=== PATIENT | male | born 1970 | race Caucasian/White ===

== ENCOUNTER 2023-04-07 07:57 | Outpatient (OUT) | payer BC, SELFPAY ==
[2023-04-07 08:57] LABS: Basophils Absolute Auto 0.1 10^3/uL (0.0-0.1); Basophils Percent Auto 1.1 % (0.2-2.0); Eosinophils Absolute Auto 0.2 10^3/uL (0.0-0.7); Hematocrit 41.6 % (36.0-54.0); Hemoglobin 14.4 g/dL (12.0-18.0); Immature Granulocytes Abs Auto 0.02 10^3/uL (0.00-0.03); Immature Granulocytes Pct Auto 0.3 % (0.0-0.5); Lymphocytes Absolute Auto 2.1 10^3/uL (1.2-3.8); Lymphocytes Percent Auto 33.1 % (20.5-60.0); Mean Corpuscular HGB Conc 34.6 g/dL (29.9-35.2); Mean Corpuscular Hemoglobin 29.6 pg (25.9-34.0); Mean Corpuscular Volume 85.4 fL (80.0-99.0); Mean Platelet Volume 9.9 fL (9.5-13.5); Monocytes Absolute Auto 0.6 10^3/uL (0.3-0.8); Monocytes Percent Auto 9.1 % (1.7-12.0); Neutrophils Absolute Auto 3.3 10^3/uL (1.4-6.5); Neutrophils Percent Auto 53.4 % (43.0-75.0); Platelet Count 246 10^3/uL (150-450); Red Blood Count 4.87 10^6/uL (4.20-6.10); White Blood Count 6.3 10^3/uL (4.0-11.0)
[2023-04-07 09:15] LABS: Alanine Aminotransferase 45 U/L (14-63); Albumin Globulin Ratio 1.4; Albumin Level 4.1 g/dL (3.4-5.0); Alkaline Phosphatase 57 U/L (46-116); Anion Gap 11.1; Aspartate Amino Transferase 19 U/L (15-37); BUN Creatinine Ratio 13.6; Bilirubin Total 0.4 mg/dL (0.2-1.0); Calcium 9.1 mg/dL (8.5-10.1); Carbon Dioxide 28.1 mmol/L (21.0-32.0); Chloride 106 mmol/L (98-107); Chol HDL Ratio 4.4; Cholesterol 145 mg/dL (<=200); Estimated GFR (African America >60 (>=60); Estimated GFR (Non-African Ame >60 (>=60); Globulin 2.9 g/dL; Glucose 135 mg/dL (74-106); HDL Cholesterol 33 mg/dL (40-60); Potassium 4.2 mmol/L (3.5-5.1); Sodium 141 mmol/L (136-145); Triglycerides 146 mg/dL (<=150); VLDL CHOLESTEROL 29.2 mg/dL
[2023-04-07 09:42] LABS: Prostate Specific Antigen Scrn 1.06 ng/mL (<=4.00)
[2023-04-07 09:46] LABS: Estimated Average Glucose 126 mg/dL
== END 2023-04-07 07:58 ==
PROVIDERS: PCP Family Medicine; Visit Provider Family Medicine
DX: Z00.00 Encounter for general adult medical examination without abnormal findings (principal); Z12.5 Encounter for screening for malignant neoplasm of prostate
CPT/HCPCS: 36415; 80053; 80061; 83036; 85025; G0103

== ENCOUNTER 2024-01-17 14:46 | Outpatient (OUT) | payer BC, SELFPAY ==
[2024-01-17 15:46] LABS: Thyroid Stimulating Hormone 1.117 uIU/mL (0.358-3.740)
[2024-01-17 16:18] LABS: Free T4 1.04 ng/dL (0.76-1.46)
[2024-01-18 04:08] LABS: Testosterone 172 ng/dL (264-916)
== END 2024-01-17 14:47 | disposition home or self-care (01) ==
LOC: LAB 14:47
PROVIDERS: PCP Family Medicine; Visit Provider Family Medicine
DX: R53.83 Other fatigue (principal)
CPT/HCPCS: 36415; 84403; 84439; 84443

== ENCOUNTER 2024-02-27 20:41 | Outpatient (OUT) | payer BC, SELFPAY | END 2024-02-27 20:42 | disposition home or self-care (01) | LOC: SLEEP 20:42 | PROVIDERS: PCP Family Medicine; Visit Provider Family Medicine | DX: G47.33 Obstructive sleep apnea (adult) (pediatric) (principal) | CPT/HCPCS: 95810 ==

== ENCOUNTER 2024-04-16 19:49 | Outpatient (OUT) | payer BC, SELFPAY ==
--- OUTSIDE RECORDS SUMMARY | 2024-04-16 19:52 | XMS_ITS | CCD ---
Author Organization [facility] Inform ion Partnership [facility] Care Team Providers Care Spinneret Cleaner Name Role Phone YOSELYN HENDRIX Referring Unavaila YOSELYN Mcintyre Primary Care Unavaila Yoselyn Mcintyre DO Primary Care Provider Yoselyn Hendrix DO Primary Care Provider KT GARCIA Admitting Unavailable KT GARCIA Attending Unavailable YOSELYN EHNDRIX Primary Care Unavaila Yoselyn Mcintyre DO Primary Care Provider Yoselyn Hendrix DO Unavailable [phone] Medications Current Medications Medication Drug Class(es) Dates Sig (Normalized) Sig (Original) fenofibrate 160 mg oral tablet (3 sources) Peroxisome Proliferator Receptor alpha Agonist Start: 12-07-2021 take 1 tablet by mouth once daily fenofibrate (TRIGLIDE) 160 MG tablet Take 1 tablet by mouth daily 30 tablet 5 12/07/2021 Active Start: 09-30-2019 take 1 tablet by tonny th once daily fenofibrate 160 MG tablet Take 1 tablet by mouth daily 30 tablet 1 09/30/2019 Active FENOFIBRATE MICR ONIZED PO Take by mouth 0 Active lisinopril 10 mg oral tablet (3 sources) Angiotensin Converting Enzyme Inhibitor Start: 12-07-2021 lisinopril (PRINIVIL;ZESTRIL) 10 MG tablet Indications: Essential hypertension Take 1 daily 30 tablet 5 12/07/2021 Active Start: 11-08-2019 take 1 tablet by tonny th once daily lisinopril (PRINIVIL;ZESTRIL) 10 MG tablet Indications: Essential hypertension TAKE ONE TABLET BY MOUTH EVERY DAY 30 tablet 5 11/08/2019 Active Problems Active Problems Problem Classification Problem Date Documented Da te Episodic/Chronic Disorders of lipid metabolism (3 sources) Pure hyperglyceridemia; Translations: [Pure hyperglyceridemia] Onset: 10-09-2017 Chronic Essential hypertension (1 source) Essential hypertension Chronic Immunizations and screening for infectious disease (1 source) Suspected disease caused by 2019-nCoV; Translations: [Suspected COVID-19 virus infection] Episodic Past or Other Problems Problem Classification Problem Date Documented Da te Episodic/Chronic Genitourinary symptoms and ill-defined conditions (1 source) Slowing of urinary stream Episodic Results Test Name Value Interpretation Reference Range Facility SARS-CoV-2 (COVID-19) RT-PCR on 04-30-2022 SARS-CoV-2 (COVID-19) RNA SHERWIN+probe Ql (Unsp spec) Negative Normal [facility] Comment on above: Order Comment: Is th is a pre-procedure screening test?->No Release to patient->Automatic 92977&Nasal swab Result Comment: NEGA TIVE: SARS-CoV-2 RNA was NOT detected - Interpretation: A negative result indicates severe acute respiratory syndrome coronavirus 2 (SARS-CoV-2) RNA was not detected. Negative results do not preclude SARS-CoV-2 infection and should not be used as the sole basis for patient management decisions. Negative results must be combined with clinical observations, patient history, and epidemiological information. The possibility of a false negative result should be considered if the patient's recent exposures or clinical presentation suggest that SARS-CoV-2 infection is possible, and diagnostic tests for other causes of illness are negative. If SARS-CoV-2 infection is still suspected, re-testing should be considered. - Method: Real-time reverse transcriptase PCR amplification for the qualitative detection of the ORF1 a/b non-structural region that is unique to SARS-CoV-2 and a conserved region in the structural protein envelope E-gene for morton-Sarbecovirus detection using the Ciera SARS-CoV-2 assay on the Donell Ciera 6800 System. - Comment: This test has received FDA Emergency Use Authorization (EUA) and has been verified by [facility] [place] [facility] [place]. This test is only authorized for the duration of the public health emergency declaration and the circumstances that exist to justify the authorization of the emergency use of in vitro diagnostic tests for the detection of SARS-CoV-2 virus and/or diagnosis of COVID-19 infection under section 564(b)(1) of the Act, 21 U.S.C. 360bbb-3(b)(1), unless the authorization is terminated or revoked sooner. This test has not been FDA cleared or approved. Results should be used in conjunction with clinical findings, and should not form the sole basis for a diagnosis or treatment decision. - Fact Sheets for this EUA can be found at the following links: For Healthcare Providers: www.fda.gov/media/991782/download For Patients: www.fda.gov/media/085809/download - Reference Value: Negative Performed By: #### C OVID #### [place] [address] CIERA SARS CoV-2 RT PCR Not detected Normal [facility] Comment on above: Order Comment: Is th is a pre-procedure screening test?->No Release to patient->Automatic 84065&Nasal swab Performed By: #### C OVID #### [place] [address] SARS-CoV-2 (COVID-19) RT-PCR on 04-28-2022 Date of Symptom Onset [id number] Normal [facility] Comment on above: Order Comment: Is th is a pre-procedure screening test?->No Release to patient->Automatic 50858&Nasal swab Performed By: #### C OVID #### [place] [address] ICU? No Normal [facility] Comment on above: Order Comment: Is th is a pre-procedure screening test?->No Release to patient->Automatic 73467&Nasal swab Performed By: #### C OVID #### [place] [address] Resident in congregate care setting? No Normal [facility] Comment on above: Order Comment: Is th is a pre-procedure screening test?->No Release to patient->Automatic 11687&Nasal swab Performed By: #### C OVID #### [facility] [address] [place] [address] SARS-CoV-2 (COVID-19) RNA SHERWIN+probe Ql (Unsp spec) Yes Normal [facility] Comment on above: Order Comment: Is th is a pre-procedure screening test?->No Release to patient->Automatic 13856&Nasal swab Performed By: #### C OVID #### [address] [address] Symptomatic as defined by CDC? Yes Normal [facility] Comment on above: Order Comment: Is th is a pre-procedure screening test?->No Release to patient->Automatic 12307&Nasal swab Performed By: #### C OVID #### [address] [address] Surgical Specimenon 03-29-20 Surgical Specimen [facility] [address] [address] FINAL SURGICAL PATHOLOGY REPORT NAME: PANKAJ COLEMAN Date of 03/29/2022 Collection: Medical Record [id number] Date of 03/29/2022 Number: Receipt: Age: 52 Y Sex: M Date 04/01/2022 08:52 Reported: Date Of : 1970 [facility] [id number] Admitting KT GARCIA Number: Physician: Patient SAGE ENDOPLNON Ordering KT GARCIA Location: Physician: Accession Number: [id number] Additional Physicians:MARÍA HENDRIX Diagnosis: A. Transverse colon, polyps (2), polypectomy: Tubular adenomas (2). B. Sigmoid colon, polyps (4), polypectomy: Tubular adenoma (1) and incipient hyperplastic polyps (3). EZEQUIEL SAEED M.D. (Electronic Signature) Specimen Submitted: A. COLON POLYP, TRANSVERSE X 2 B. COLON POLYP, SIGMOID X 4 Clinical Notes: Procedure: Colonoscopy with biopsy Preoperative Dx: Screening Postoperative Dx:: Screening Microscopic Evaluation: Was performed. Gross Description: The specimen is received in buffered formalin in two parts labeled Pankaj Coleman. A. transverse colon polyp biopsy consists of 2 soft avery tissue fragments, 0.2 to 0.3 cm in greatest dimension. Entirely submitted in A1. B. sigmoid colon polyp biopsy consists of 4 soft avery tissue fragments, 0.3 to 0.4 cm in greatest dimension. Entirely submitted in B1. (TIFFANIE:YARELY) CODES: [id number]; Department of Pathology Page 1 of 1 Normal [facility] CBC With Platelet No Differe ntialon 12-07-2021 Hematocrit (Bld) [Volume fraction] 44.8 % Normal 37.0-54.0 [facility] Hemoglobin (Bld) [Mass/Vol] 15.2 g/dL Normal 12.5-16.5 [facility] MCH (RBC) [Entitic mass] 29.3 pg Normal 26.0-35.0 [facility] MCHC 33.9 % Normal 32.0-34.5 [facility] MCV (RBC) [Entitic vol] 86.5 fL Normal 80.0-99.9 [facility] Platelet Count 273 E9/L Normal 130-450 [facility] Platelet mean volume (Bld) [Entitic vol] 10.0 fL Normal 7.0-12.0 [facility] RBC 5.18 E12/L Normal 3.80-5.80 [facility] RDW 12.5 fL Normal 11.5-15.0 [facility] WBC 6.4 E9/L Normal 4.5-11.5 [facility] Comprehensive Metabolic Pane razia 12-07-2021 Albumin [Mass/Vol] 4.7 g/dL Normal 3.5-5.2 [facility] ALP [Catalytic activity/Vol] 51 U/L Normal 40-129 [facility] ALT [Catalytic activity/Vol] 30 U/L Normal 0-40 [facility] Anion gap [Moles/Vol] 10 mmol/L Normal 7-[address] [facility] AST [Catalytic activity/Vol] 21 U/L Normal 0-39 [facility] Bilirubin [Mass/Vol] 0.5 mg/dL Normal 0.0-1.2 [facility] Calcium [Mass/Vol] 9.8 mg/dL Normal 8.6-10.2 [facility] Chloride [Moles/Vol] 105 mmol/L Normal 98-107 [facility] CO2 [Moles/Vol] 27 mmol/L Normal 22-29 [facility] Creatinine [Mass/Vol] 1.3 mg/dL High 0.7-1.2 [facility] GFR/1.73 sq M.predicted among blacks MDRD (S/P/Bld) [Vol rate/Area] mL/min/{1.73_m2} Normal [facility] GFR/1.73 sq M.predicted among non-blacks MDRD (S/P/Bld) [Vol rate/Area] 58 mL/min/{1.73_m2} Normal >=60 [facility] Comment on above: Result Comment: Analytics Director renard Kidney Disease: less than 60 ml/min/1.73 sq.m. Kidney Failure: less than 15 ml/min/1.73 sq.m. Results valid for patients 18 years and older. Glucose [Mass/Vol] 114 mg/dL High 74-99 [facility] Potassium [Moles/Vol] 4.7 mmol/L Normal 3.5-5.0 [facility] Protein [Mass/Vol] 6.9 g/dL Normal 6.4-8.3 [facility] Sodium [Moles/Vol] 142 mmol/L Normal 132-146 [facility] Urea nitrogen [Mass/Vol] 17 mg/dL Normal 6-20 [facility] Lipid Panelon 12-07-2021 Cholesterol [Mass/Vol] 179 mg/dL Normal 0-199 [facility] Cholesterol in HDL [Mass/Vol] 33 mg/dL Normal >40 [facility] Cholesterol in LDL [Mass/Vol] 115 mg/dL High 0-99 [facility] Triglyceride [Mass/Vol] 156 mg/dL High 0-149 [facility] VLDL Cholesterol (Calculated) 31 mg/dL Normal [facility] PSA Screenon 12-07-2021 PSA Screen 0.75 ng/mL Normal 0.00-4.00 [facility] SARS-CoV-2 (COVID-19) RT-PCR on 09-30-2021 SARS-CoV-2 (COVID-19) RNA SHERWIN+probe Ql (Unsp spec) Negative Normal [facility] Comment on above: Order Comment: PATY PUCKETT SICK COVID 12:00 Result Comment: NEGA TIVE: SARS-CoV-2 RNA was NOT detected - Interpretation: A negative result indicates severe acute respiratory syndrome coronavirus 2 (SARS-CoV-2) RNA was not detected. Negative results do not preclude SARS-CoV-2 infection and should not be used as the sole basis for patient management decisions. Negative results must be combined with clinical observations, patient history, and epidemiological information. The possibility of a false negative result should be considered if the patient's recent exposures or clinical presentation suggest that SARS-CoV-2 infection is possible, and diagnostic tests for other causes of illness are negative. If SARS-CoV-2 infection is still suspected, re-testing should be considered. - Method: Real-time reverse transcriptase PCR amplification for the qualitative detection of the ORF1 a/b non-structural region that is unique to SARS-CoV-2 and a conserved region in the structural protein envelope E-gene for morton-Sarbecovirus detection using the Ciera SARS-CoV-2 assay on the Donell Ciera 6800 System. - Comment: This test has received FDA Emergency Use Authorization (EUA) and has been verified by [facility]. This test is only authorized for the duration of the public health emergency declaration and the circumstances that exist to justify the authorization of the emergency use of in vitro diagnostic tests for the detection of SARS-CoV-2 virus and/or diagnosis of COVID-19 infection under section 564(b)(1) of the Act, 21 U.S.C. 360bbb-3(b)(1), unless the authorization is terminated or revoked sooner. This test has not been FDA cleared or approved. Results should be used in conjunction with clinical findings, and should not form the sole basis for a diagnosis or treatment decision. - Fact Sheets for this EUA can be found at the following links: For Healthcare Providers: www.fda.gov/media/465644/download For Patients: www.fda.gov/media/932987/download - Reference Value: Negative Performed By: #### C OVID #### [facility] [address] [place] [address] CIERA SARS CoV-2 RT PCR Not detected Normal [facility] Comment on above: Order Comment: PATY PUCKETT SICK COVID 12:00 Performed By: #### C OVID #### [facility] [address] [place] [address] SARS-CoV-2 (COVID-19) RT-PCR on 07-01-2021 SARS-CoV-2 (COVID-19) RNA SHERWIN+probe Ql (Unsp spec) Negative Normal [facility] Comment on above: Result Comment: NEGA TIVE: SARS-CoV-2 RNA was NOT detected - Interpretation: A negative result indicates severe acute respiratory syndrome coronavirus 2 (SARS-CoV-2) RNA was not detected. Negative results do not preclude SARS-CoV-2 infection and should not be used as the sole basis for patient management decisions. Negative results must be combined with clinical observations, patient history, and epidemiological information. The possibility of a false negative result should be considered if the patient's recent exposures or clinical presentation suggest that SARS-CoV-2 infection is possible, and diagnostic tests for other causes of illness are negative. If SARS-CoV-2 infection is still suspected, re-testing should be considered. - Method: Real-time reverse transcriptase PCR amplification for the qualitative detection of the ORF1 a/b non-structural region that is unique to SARS-CoV-2 and a conserved region in the structural protein envelope E-gene for morton-Sarbecovirus detection using the Ciera SARS-CoV-2 assay on the Donell Ciera [employer] System. - Comment: This test has received FDA Emergency Use Authorization (EUA) and has been verified by [facility]. This test is only authorized for the duration of the public health emergency declaration and the circumstances that exist to justify the authorization of the emergency use of in vitro diagnostic tests for the detection of SARS-CoV-2 virus and/or diagnosis of COVID-19 infection under section 564(b)(1) of the Act, 21 U.S.C. 360bbb-3(b)(1), unless the authorization is terminated or revoked sooner. This test has not been FDA cleared or approved. Results should be used in conjunction with clinical findings, and should not form the sole basis for a diagnosis or treatment decision. - Fact Sheets for this EUA can be found at the following links: For Healthcare Providers: www.fda.gov/media/964441/download For Patients: www.fda.gov/media/873354/download - Reference Value: Negative Performed By: #### C OVID #### [place] [address] Dermatopathologyon 0 Dermatopathology [facility] [address] [place] [id number] DER[facility]OPATHOLOGY RE[id number] Location: [facility] Date of Procedure: 05/06/2020 Race: UNKNOWN* Date Received: 05/07/2020 /Sex: 1970 (Age: 50) / M Date Reported: 05/08/2020 Other: Submitting Physician:NOMNA WEEKS PA-C FINAL DIAGNOSIS SKIN, LEFT NECK, BIOPSY: SEBORRHEIC KERATOSIS. Electronically Signed Out by NANO BANKS M.D. Electronically Signed Out By NANO BANKS MD/[facility] By the signature on this report, the individual or group listed as making the Final Interpretation/Katie gnosis certifies that they have reviewed this case. Clinical History: Seborrheic keratosis rule out atypia. Biopsy. Specimens Submitted As: A: SKIN, LEFT NECK Gross Description: Received in formalin is a avery piece of skin measuring 2q3x5ls. The specimen is inked and embedded in toto. prp/05/07/2020 Microscopic Description: Microscopic analysis shows a papillomatous proliferation of bland keratinocytes with hyperkeratosis, acanthosis and pseudohorn cysts. Inflammatory cells are present in the dermis and infiltrate the keratosis. Normal [facility] Comment on above: Performed By: #### D #### Dermatopathology Comprehensive Metabolic Pane razia 11-08-2019 Albumin [Mass/Vol] 4.7 g/dL Normal 3.5-5.2 [facility] ALP [Catalytic activity/Vol] 63 U/L Normal 40-129 [facility] ALT [Catalytic activity/Vol] 45 U/L High 0-40 [facility] Anion gap [Moles/Vol] 21 mmol/L High 7-16 [facility] AST [Catalytic activity/Vol] 25 U/L Normal 0-39 [facility] Bilirubin [Mass/Vol] 0.6 mg/dL Normal 0.0-1.2 [facility] Calcium [Mass/Vol] 10.2 mg/dL Normal 8.6-10.2 [facility] Chloride [Moles/Vol] 108 mmol/L High 98-107 [facility] CO2 [Moles/Vol] 18 mmol/L Low 22-29 [facility] Creatinine [Mass/Vol] 1.2 mg/dL Normal 0.7-1.2 [facility] GFR/1.73 sq M predicted among blacks MDRD (S/P/Bld) [Vol rate/Area] mL/min/{1.73_m2} Normal [facility] GFR/1.73 sq M predicted among non-blacks MDRD (S/P/Bld) [Vol rate/Area] mL/min/{1.73_m2} Normal >=60 [facility] Comment on above: Result Comment: Analytics Director renard Kidney Disease: less than 60 ml/min/1.73 sq.m. Kidney Failure: less than 15 ml/min/1.73 sq.m. Results valid for patients 18 years and older. Glucose [Mass/Vol] 113 mg/dL High 74-99 [facility] Potassium [Moles/Vol] 4.8 mmol/L Normal 3.5-5.0 [facility] Protein [Mass/Vol] 7.3 g/dL Normal 6.4-8.3 [facility] Sodium [Moles/Vol] 147 mmol/L High 132-146 [facility] Urea nitrogen [Mass/Vol] 18 mg/dL Normal 6-20 [facility] Comprehensive Metabolic Pane lOrdered By: Yoselyn Hendrix on 11-08-2019 Albumin [Mass/Vol] 4.7 g/dL 3.5 - 5.2 g/dL [facility] [employer] Work Phone: ALP [Catalytic activity/Vol] 63 U/L 40 - 129 U/L [facility] [employer] Phone: ALT [Catalytic activity/Vol] 45 U/L High 0 - 40 U/L [facility] [employer] Phone: Anion gap [Moles/Vol] 21 mmol/L High 7 - 16 mmol/L [facility] [employer] Phone: AST [Catalytic activity/Vol] 25 U/L 0 - 39 U/L [facility] [employer] Phone: Bilirubin [Mass/Vol] 0.6 mg/dL 0 - 1.2 mg/dL [facility] [employer] Phone: Calcium [Mass/Vol] 10.2 mg/dL 8.6 - 10. 2 mg/dL [facility] [employer] Phone: Chloride [Moles/Vol] 108 mmol/L High 98 - 10 7 mmol/L [facility] [employer] Phone: CO2 [Moles/Vol] 18 mmol/L Low 22 - 29 mmol/L [facility] [employer] Phone: Creatinine [Mass/Vol] 1.2 mg/dL 0.7 - 1.2 mg/dL [facility] [employer] Phone: GFR >60 [facility] [employer] Work Phone: GFR Non- >60 >=6 0 mL/min/1.73 [employer] Phone: Comment on above: Chronic Kidney Disea se: less than 60 ml/min/1.73 sq.m. Kidney Failure: less than 15 ml/min/1.73 sq.m. Results valid for patients 18 years and older. Glucose [Mass/Vol] 113 mg/dL High 74 - 99 mg/dL [facility] [employer] Work Phone: Potassium [Moles/Vol] 4.8 mmol/L 3.5 - 5 mmol/L [facility] Phone: Protein [Mass/Vol] 7.3 g/dL 6.4 - 8.3 g/dL [facility] [employer] Work Phone: Sodium [Moles/Vol] 147 mmol/L High 132 - 146 mmol/L [facility] Phone: Urea nitrogen [Mass/Vol] 18 mg/dL 6 - 20 mg/d L [employer] Phone: Lipid Panelon 11-08-2019 Cholesterol [Mass/Vol] 196 mg/dL Normal 0-199 [facility] Cholesterol in HDL [Mass/Vol] 31 mg/dL Normal >40 [facility] Cholesterol in LDL [Mass/Vol] 109 mg/dL High 0-99 [facility] Triglyceride [Mass/Vol] 278 mg/dL High 0-149 [facility] VLDL Cholesterol (Calculated) 56 mg/dL Normal [facility] Lipid PanelOrdered By: Mando Hendrix on 11-08-2019 Cholesterol [Mass/Vol] 196 mg/dL 0 - 199 mg/dL [employer] Phone: Cholesterol in HDL [Mass/Vol] 31 mg/dL >40 [employer] Phone: Cholesterol in LDL [Mass/Vol] 109 mg/dL High 0 - 99 mg/dL [facility] Phone: Magnesium [Mass/Vol] 56 mg/dL [employer] Phone: Triglyceride [Mass/Vol] 278 mg/dL High 0 - 149 mg/d L [employer] Work Phone: No Panel InformationOrdered By: Yoselyn Hendrix on 11-08-2019 Interpretation and review of laboratory results Abnormal [employer] Work Phone: PSA Screenon 11-08-2019 PSA Screen 1.02 ng/mL Normal 0.00-4.00 [facility] Vital Signs Date Time Vital Sign Value Performing Clinician Faci lit 03-29-2022 08:29-0400 Body temperature 97.2 [degF] Kt Garcia MD Work Phone: [employer] 03-29-2022 08:29-0400 Diastolic blood pressure 71 mm[Hg] Kt Garcia MD Work Phone: [employer] 03-29-2022 08:29-0400 Heart rate 69 /min Kt Garcia MD Work Phone: [employer] 03-29-2022 08:29-0400 Respiratory rate 18 /min Kt Garcia MD Work Phone: [employer] 03-29-2022 08:29-0400 SaO2% (BldA) [Mass fraction] 96 % Kt Garcia MD Work Phone: [employer] 03-29-2022 08:29-0400 Systolic blood pressure 107 mm[Hg] Kt Garcia MD Work Phone: [employer] 03-25-2022 09:59-0400 Body height 172.7 cm Kt Garcia MD Work Phone: [employer] 03-25-2022 09:59-0400 Body mass index (BMI) [Ratio] 28.13 kg/m2 Kt Garcia MD Work Phone: [employer] 03-25-2022 09:59-0400 Body weight 83.92 kg Kt Garcia MD Work Phone: [facility] Encounters Encounter Date Encounter Type Care Provider Facility Start: 04-28-2022 End: 04-28-2022 Subsequent hospital visit by physician Bora Ruano MD Work Phone: [facility] Non-Patient Comment on above: Suspected COVID-19 v irus infection Start: 03-29-2022 End: 03-29-2022 ambulatory KT Nicol BRENDEN [facility] Start: 03-29-2022 End: 03-29-2022 Subsequent hospital visit by physician Kt Garcia MD Work Phone: [facility] Start: 11-08-2019 End: 11-11-2019 Patient encounter procedure YOSELYN HENDRIX [facility] Start: 11-08-2019 End: 11-10-2019 Subsequent hospital visit by physician Yoselyn Hendrix DO Work Phone: [facility] Comment on above: Decreased urine stre am; Essential hypertension; Pure hyperglyceridemia Procedures Date Procedure Procedure Detail Performing Clinician Start: 03-29-2022 DISCHARGE PATIENT KT GARCIA Start: 03-29-2022 Level iv surg pathol ogy gross&microscopic exam KT GARCIA Start: 03-29-2022 DIET NPO KT APONTE Start: 03-29-2022 FULL CODE KT APONTE Start: 03-29-2022 TREATMENT CONSENT KT GARCIA Start: 03-29-2022 VERIFY INFORMED CONSENT KT GARCIA Start: 03-29-2022 VITAL SIGNS KT APONTE Start: 03-29-2022 Colonoscopy Kt aponte MD Work Phone: Start: 11-08-2019 Comprehensive metabo lic panel Yoselyn Hendrix DO Work Phone: Start: 11-08-2019 Lipid panel Tramaine Hendrix DO Work Phone: Start: 11-08-2019 End: 11-08-2019 PSA screening Yoselyn lazo DO Work Phone: Plan of Treatment Date Care Activity Detail Author Start: 12-07-2026 Lipid panel Lipids [facility] [employer] Start: 11-08-2024 Lipid screen Lipid screen [facility] Work Phone: Start: 12-07-2022 Depression Screen Depression Screen [facility] Start: 06-23-2022 FLU (#1) FLU (#1) [facility] Start: 04-14-2022 End: 04-14-2022 Patient encounter procedure 04/14/2022 Office Visit General Surgery Kt Garcia MD [address] [place] [address] [facility] [employer] [facility] Start: 03-29-2022 End: 03-29-2022 Colonoscopy flx dx w/collj spec when pfrmd COLORECTAL CANCER SCREENING, NOT HIGH RISK SCREENING 03/29/2022 7:15 AM EDT [facility] [employer] [facility] Start: 11-08-2020 Creatinine monitoring Creatinine mon itoring [facility] [employer] Work Phone: Start: 11-08-2020 Potassium monitoring Potassium monit oring [facility] [employer] Work Phone: Start: 02-22-2020 Shingles vaccine (1 of 2) Shingles vaccine (1 of 2) [facility] Start: 06-23-2019 Influenza vaccination Flu vaccine (# 1) [facility] [employer] Phone: Start: 2015 Screening for malign ant neoplasm of colon [facility] Start: 2010 Diabetes screen Diabetes screen [facility] [employer] Work Phone: Start: 09-24-2009 MMR (1 of 1 - Standa rd series) MMR (1 of 1 - Standard series) [facility] Start: 09-24-2009 Varicella (1 of 2 - 2-dose childhood series) Varicella (1 of 2 - 2-dose childhood series) [facility] Start: 2005 Diabetes screen Diabetes screen [facility] Start: 1989 DTaP/Tdap/Td vaccine (1 - Tdap) DTaP/Tdap/Td vaccine (1 - Tdap) [facility] Start: 02-22-1988 Hepatitis C screening Hepatitis C sc reen [facility] Start: 1986 MenB (1 of 2 - MenB 2-Dose Series) MenB (1 of 2 - MenB 2-Dose Series) [facility] Start: 1985 HIV screen HIV screen [facility] Work Phone: Start: 1985 HIV screening HIV screen [facility] Start: 1981 DTaP/Tdap/Td vaccine (1 - Tdap) DTaP/Tdap/Td vaccine (1 - Tdap) [facility] Work Phone: Start: 1977 Tetanus Diphtheria a nd Pertussis Vaccines (1 - Tdap) Tetanus Diphtheria and Pertussis Vaccines (1 - Tdap) [facility] End: 04-28-2022 SARS CoV-2 RT-PCR 1 SARS CoV-2 RT-PCR 1 Microbiology Timed Suspected Covid-19 Virus Infection 1 Occurrences starting 04/28/2022 until 04/28/[address] [facility] Work Phone: Comment on above: 1 Occurrences starti 04/28/2022 until 04/28/2022 Surgical Pathology Surgical Path ology Lab Routine Release Upon Ordering for 1 Occurrences starting 03/29/2022 [facility] Work Phone: Comment on above: Release Upon Orderin g for 1 Occurrences starting 03/29/2022 Immunizations Immunization Date Immunization Notes Care Provider Fa cility 08-26-2021 COVID-19, Moderna, Booster, PF, 50mcg/0.25ml Kt Garcia MD Work Phone: [facility] Work Phone: 11-18-2020 COVID-19, Moderna, Primary or Immunocompromised, PF, 100mcg/0.5mL Kt Garcia MD Work Phone: [facility] Work Phone: 10-20-2020 COVID-19, Moderna, Primary or Immunocompromised, PF, 100mcg/0.5mL Kt Garcia MD Work Phone: [employer] Work Phone: Payers Date Payer Category Payer Unknown [id number] 2014 Unknown [employer] [address] xxxxxxxxxxxx 2014-Present [phone] [address] [place] [address] xxxxxxxxxxxx [id number] 1970 Unknown [id number] 1970 Unknown [id number] Social History Date Type Detail Facility Start: 10-05-2017 End: 11-08-2019 Tobacco smoking status [facility] Never smoker [employer] Start: 11-08-2019 End: 03-25-2022 Alcohol intake Current non-drinker of alcohol ([facility]) [employer] Phone: Start: 1970 Sex Assigned At Not on file [employer] Work Phone: Start: 10-05-2017 Tobacco use and exposure Smokeless tobacco non-user [employer] Work Phone: Start: 12-07-2021 History SDOH Financial 5 [employer] Phone: Start: 12-07-2021 History SDOH Food Worry 1 [employer] Phone: Start: 12-03-2020 History SDOH Transpo rt Med 2 [employer] Phone: Start: 03-19-2022 End: 04-28-2022 Exposure to SARS-CoV-2 (event) Not sure [facility] Tobacco smoking stat [facility] Tobacco smoking consumption unknown [facility] History of Present illness Narrative 03-29-2022 Lisha Yepez RN - 03/29/2022 7:59 AM Akash Mendoza RN - 03/29/2022 7:52 AM Kraig Lemus RN - 03/25/2022 10:00 AM EDT Note Date & Type Note Facility 03-29-2022 History of Present illness Narrative Call light within reach. Abdomen non-distended and bowel sounds active times four quadrants. [facility] PRE-ADMISSION TESTING INSTRUCTIONS ARRIVAL INSTRUCTIONS: [x] Parking the day of Surgery is located in the Main Entrance lot. Upon entering the main door make an immediate right to the surgery authorization coordinator desk. [x] Bring photo ID and insurance card [] Bring in a copy of Living will or Durable Power of trademark attorney papers. [x] Please be sure to arrange for responsible adult to provide transportation to and from the hospital [x] Please arrange for responsible adult to be with you for the 24 hour period post procedure due to having anesthesia [x] If you awake am of surgery not feeling well or have temperature >100 please call [phone] GENERAL INSTRUCTIONS: [x] Nothing by mouth after midnight, including gum, candy, mints or water [x] You may brush your teeth, but do not swallow any water [x] Take medications as instructed with 1-2 oz of water [x] Stop herbal supplements and vitamins 5 days prior to procedure [] Follow preop dosing of blood thinners per physician instructions [] Take 1/2 dose of evening insulin, but no insulin after midnight [] No oral diabetic medications after midnight [] If diabetic and have low blood sugar or feel symptomatic, take 1-2oz apple juice only [] Bring inhalers day of surgery [] Bring C-PAP/ Bi-Pap day of surgery [] Bring urine specimen day of surgery [x] Shower or bath with soap, lather and rinse well, AM of Surgery, no lotion, powders or creams to surgical site [x] Follow bowel prep as instructed per surgeon [x] No tobacco products within 24 hours of surgery [x] No alcohol or illegal drug use within 24 hours of surgery. [x] Jewelry, body piercing's, eyeglasses, contact lenses and dentures are not permitted into surgery (bring cases) [x] Please do not wear any nail gabonese, make up or hair products on the day of surgery [x] You can expect a call the business day prior to procedure to notify you if your arrival time changes [x] If you receive a survey after surgery we would greatly appreciate your comments [x] Please notify surgeon if you develop any illness between now and time of surgery (cold, cough, sore throat, fever, nausea, vomiting) or any signs of infections including skin, wounds, and dental. [] The Outpatient Pharmacy is available to fill your prescription here on your day of surgery, ask your preop nurse for details documented in this encounter [employer] Phone: Evaluation note Note Date & Type Note Facility Evaluation note Diagnosis Decreased urine stream Slowing of urinary stream Essential hypertension Unspecified essential hypertension Pure hyperglyceridemia documented in this encounter [employer] Phone: Evaluation note Note Date & Type Note Facility Evaluation note Diagnosis Suspected COVID-19 virus infection documented in this encounter [facility] Discharge instructions Attachments Note Date & Type Note Facility Hospital Discharge instructions The following attachments cannot be sent through Care Everywhere.Colonoscopy: Post-op (Hungarian)documented in this encounter [employer] Phone: Reason for visit Narrative Auth/Cert Note Date & Type Note Facility Reason for visit Narrative Specialty Diagnoses / Procedures Referred By Horace t Referred To Contact Diagnoses Encounter for screening for malignant neoplasm of colon SCREENING Procedures CA COLONOSCOPY FLX DX W/COLLJ SPEC WHEN PFRMD CA COLONOSCOPY W/BIOPSY SINGLE/MULTIPLE CA COLSC FLX W/RMVL OF TUMOR POLYP LESION SNARE TQ COLORECTAL CANCER SCREENING, NOT HIGH RISK Kt Garcia MD [address] [place] [address] [facility] [employer] [address] [place] [address] Referral ID Status Reason Start Date Expiration Date Visits Re quested Visits Authorized 1 1 [employer] Work Phone: Summary Purpose Family History No Family History Records FoundNo Family History Records FoundNo Family History Records FoundNo Family History Records FoundNo Family History Records Found Advance Directives No Advanced Directives Records FoundDocuments on File Type Date Recorded Patient Fire Truck Driver Expl anation Advance Directives and Living Will Power of Lumber Press Operator Documents on File Type Date Recorded Patient Fire Truck Driver Expl anation ACP-Advance Directive ACP-Power of Lumber Press Operator Latest Code Status on File Code Status Date Activated Date Inactivated Comments Full Code 03/29/2022 6:37 AM Additional Source Comments (unrecognized sect ion and content) No Status Records FoundNo Status Records FoundNo Status Records FoundNo Status Records FoundNo Status Records Found INFORMATION SOURCE (unrecogn ized section and content) DATE CREATED AUTHOR 11/10/2019 [facility] DATE CREATED AUTHOR AUTHOR'S ORGANIZ ATION 05/15/2020 [facility] DATE CREATED AUTHOR AUTHOR'S ORGANIZ ATION 12/08/2021 [facility] DATE CREATED AUTHOR AUTHOR'S ORGANIZ ATION 04/02/2022 [facility] DATE CREATED AUTHOR AUTHOR'S ORGANIZ ATION 05/10/2022 [facility] Care Teams (unrecognized sec tion and content) [employer] Relationship Specialty Start Date End Date Yoselyn Hendrix DO [address] [place], [place] [id number] PCP - General Family Medicine 10/05/17 [employer] Relationship Specialty Start Date End Date Yoselyn Hendrix DO [address] [place], [place] [id number] PCP - General Family Medicine 12/19/18 Yoselyn Hendrix, [address] [facility] [place] [address] 12/19/18 FOR RECORDS PERTAINING TO PATIENTS WHO ARE OR HAVE BEEN ENROLLED IN A CHEMICAL DEPENDENCY/SUBSTANCEABUSE PROGRAM, SOME INFORMATION MAY BE OMITTED. This clinical summary was aggregated from multiple sources. Caution should be exercised in using it in the provision of clinical care. This summary normalizes information from multiple sources, and as a consequence, information in this document may materially change the coding, format and clinical context of patient data. In addition, data may be omitted in some cases. CLINICAL DECISIONS SHOULD BE BASED ON THE PRIMARY CLINICAL RECORDS. [employer] provides no warranty or guarantee of the accuracy or completeness of information in this document.
== END 2024-04-16 19:50 | disposition home or self-care (01) ==
LOC: SLEEP 19:50
PROVIDERS: PCP Family Medicine; Visit Provider Family Medicine
DX: G47.33 Obstructive sleep apnea (adult) (pediatric) (principal)
CPT/HCPCS: 95811

== ENCOUNTER 2024-06-07 08:44 | Outpatient (OUT) | payer BC, SELFPAY ==
--- OUTSIDE RECORDS SUMMARY | 2024-06-07 08:51 | XMS_ITS | CCD ---
Author Organization [facility] Inform ion Partnership [facility] Care Team Providers Care [employer] Name Role Phone YOSELYN HENDRIX Referring Unavaila YOSELYN Mcintyre Primary Care Unavaila Yoselyn Mcintyre DO Primary Care Provider Yoselyn Hendrix DO Primary Care Provider KT GARCIA Admitting Unavailable KT GARCIA Attending Unavailable YOSELYN HENDRIX Primary Care Unavaila Yoselyn Mcintyre DO Primary Care Provider Yoselyn Hendrix DO Unavailable Medications Current Medications Medication Drug Class(es) Dates [...] RNA SHERWIN+probe Ql (Unsp spec) Negative Normal [facility] Comment on above: Order Comment: Is th is a pre-procedure screening test?->No Release to patient->Automatic 54734&Nasal swab Result Comment: NEGA TIVE: SARS-CoV-2 RNA [...] (EUA) and has been verified by [facility] [place]. This test is only authorized for the [...] at the following links: For Healthcare Providers: www.fda.gov/media/169238/download For Patients: www.fda.gov/media/003404/download - Reference Value: Negative Performed By: #### C OVID #### [place] [address] CIERA SARS CoV-2 RT PCR Not detected Normal [facility] Comment on above: Order Comment: Is th is a pre-procedure screening test?->No Release to patient->Automatic 19463&Nasal swab Performed By: #### C OVID #### [place] [address] SARS-CoV-2 (COVID-19) RT-PCR on 04-28-2022 Date of Symptom Onset [id number] Normal [facility] Comment on above: Order Comment: Is th is a pre-procedure screening test?->No Release to patient->Automatic 78452&Nasal swab Performed By: #### C OVID #### [place] [address] ICU? No Normal [facility] Comment on above: Order Comment: Is th is a pre-procedure screening test?->No Release to patient->Automatic 37118&Nasal swab Performed By: #### C OVID #### [place] [address] Resident in congregate care setting? No Normal [facility] Comment on above: Order Comment: Is th is a pre-procedure screening test?->No Release to patient->Automatic 82638&Nasal swab Performed By: #### C OVID #### [facility] [address] [place] [address] SARS-CoV-2 (COVID-19) RNA SHERWIN+probe Ql (Unsp spec) Yes Normal [facility] Comment on above: Order Comment: Is th is a pre-procedure screening test?->No Release to patient->Automatic 07769&Nasal swab Performed By: #### C OVID #### [address] [address] Symptomatic as defined by CDC? Yes Normal [facility] Comment on above: Order Comment: Is th is a pre-procedure screening test?->No Release to patient->Automatic 55709&Nasal swab Performed By: #### C OVID #### [address] [address] Surgical Specimenon 03-29-20 Surgical Specimen [facility] [address] [address] FINAL SURGICAL PATHOLOGY REPORT NAME: PANKAJ COLEMAN Date of 03/29/2022 Collection: Medical Record [id number] Date of 03/29/2022 Number: Receipt: Age: 52 Y Sex: M Date 04/01/2022 08:52 Reported: Date Of : 1970 [facility] [id number] Admitting KT GARCIA Number: Physician: Patient SAGE [...] dimension. Entirely submitted in B1. (TIFFANIE:YARELY) CODES: [id number]; Department of Pathology Page 1 of 1 Normal [facility] CBC With Platelet No Differe ntialon 12-07-2021 Hematocrit (Bld) [Volume fraction] 44.8 % Normal 37.0-54.0 [facility] Hemoglobin (Bld) [Mass/Vol] 15.2 g/dL Normal 12.5-16.5 [facility] MCH (RBC) [Entitic mass] 29.3 pg Normal 26.0-35.0 [facility] MCHC 33.9 % Normal 32.0-34.5 [facility] MCV (RBC) [Entitic vol] 86.5 fL Normal 80.0-99.9 [facility] Platelet Count 273 E9/L Normal 130-450 [facility] Platelet mean volume (Bld) [Entitic vol] 10.0 fL Normal 7.0-12.0 [facility] RBC 5.18 E12/L Normal 3.80-5.80 [facility] RDW 12.5 fL Normal 11.5-15.0 [facility] WBC 6.4 E9/L Normal 4.5-11.5 [facility] Comprehensive Metabolic Pane razia 12-07-2021 Albumin [Mass/Vol] 4.7 g/dL Normal 3.5-5.2 [facility] ALP [Catalytic activity/Vol] 51 U/L Normal 40-129 [facility] ALT [Catalytic activity/Vol] 30 U/L Normal 0-40 [facility] Anion gap [Moles/Vol] 10 mmol/L Normal 7-16 [facility] AST [Catalytic activity/Vol] 21 U/L Normal 0-39 [facility] Bilirubin [Mass/Vol] 0.5 mg/dL Normal 0.0-1.2 [facility] Calcium [Mass/Vol] 9.8 mg/dL Normal 8.6-10.2 [facility] Chloride [Moles/Vol] 105 mmol/L Normal 98-107 [facility] CO2 [Moles/Vol] 27 mmol/L Normal 22-29 [facility] Creatinine [Mass/Vol] 1.3 mg/dL High 0.7-1.2 [facility] GFR/1.73 sq M.predicted among blacks MDRD (S/P/Bld) [Vol rate/Area] mL/min/{1.73_m2} Normal [facility] GFR/1.73 sq M.predicted among non-blacks MDRD (S/P/Bld) [Vol rate/Area] 58 mL/min/{1.73_m2} Normal >=60 [facility] Comment on above: Result Comment: Boat Cleaning Supervisor renard Kidney Disease: less than 60 ml/min/1.73 sq.m. Kidney Failure: less than 15 ml/min/1.73 sq.m. Results valid for patients 18 years and older. Glucose [Mass/Vol] 114 mg/dL High 74-99 [facility] Potassium [Moles/Vol] 4.7 mmol/L Normal 3.5-5.0 [facility] Protein [Mass/Vol] 6.9 g/dL Normal 6.4-8.3 [facility] Sodium [Moles/Vol] 142 mmol/L Normal 132-146 [facility] Urea nitrogen [Mass/Vol] 17 mg/dL Normal 6-20 [facility] Lipid Panelon 12-07-2021 Cholesterol [Mass/Vol] 179 mg/dL Normal 0-199 [facility] Cholesterol in HDL [Mass/Vol] 33 mg/dL Normal >40 [facility] Cholesterol in LDL [Mass/Vol] 115 mg/dL High 0-99 [facility] Triglyceride [Mass/Vol] 156 mg/dL High 0-149 [facility] VLDL Cholesterol (Calculated) 31 mg/dL Normal [facility] PSA Screenon 12-07-2021 PSA Screen 0.75 ng/mL Normal 0.00-4.00 [facility] SARS-CoV-2 (COVID-19) RT-PCR on 09-30-2021 SARS-CoV-2 (COVID-19) RNA SHERWIN+probe Ql (Unsp spec) Negative Normal [facility] Comment on above: Order Comment: PATY PUCKETT [...] Authorization (EUA) and has been verified by [facility]. This test is only authorized for [...] at the following links: For Healthcare Providers: www.fda.gov/media/866505/download For Patients: www.fda.gov/media/487947/download - Reference Value: Negative Performed By: #### C OVID #### [facility] [address] [place] [address] CIERA SARS CoV-2 RT PCR Not detected Normal [facility] Comment on above: Order Comment: PATY PUCKETT SICK COVID 12:00 Performed By: #### C OVID #### [facility] [address] [place] [address] SARS-CoV-2 (COVID-19) RT-PCR on 07-01-2021 SARS-CoV-2 (COVID-19) RNA SHERWIN+probe Ql (Unsp spec) Negative Normal [facility] Comment on above: Result Comment: NEGA TIVE: [...] Ciera SARS-CoV-2 assay on the Donell Ciera mobileo0 System. - Comment: This test has received FDA Emergency Use Authorization (EUA) and has been verified by [facility]. This test is only authorized for [...] at the following links: For Healthcare Providers: www.fda.gov/media/885525/download For Patients: www.fda.gov/media/331248/download - Reference Value: Negative Performed By: #### C OVID #### [place] [address] Dermatopathologyon 0 Dermatopathology [facility] Dermatopathology Laboratory [address] [place] [id number] DERMATOPATHOLOGY RE[facility] [id number] Location: [facility] Date of Procedure: 05/06/2020 Race: UNKNOWN* Date Received: 05/07/2020 /Sex: 1970 (Age: 50) / M Date Reported: 05/08/2020 Other: Submitting Physician:NOMAN WEEKS PA-C FINAL DIAGNOSIS SKIN, LEFT NECK, BIOPSY: SEBORRHEIC KERATOSIS. Electronically Signed Out by NANO BANKS M.D. Electronically Signed Out By NANO BANKS MD/[facility] By the signature on this report, the individual or group listed as making the Final Interpretation/Katie gnosis certifies that they have reviewed this case. Clinical History: Seborrheic keratosis rule out atypia. Biopsy. Specimens Submitted As: A: SKIN, LEFT NECK Gross Description: Received in formalin is a avery piece of skin measuring [id number]. The specimen is inked and embedded in toto. scp/05/07/2020 Microscopic Description: Microscopic analysis shows a papillomatous proliferation of bland keratinocytes with hyperkeratosis, acanthosis and pseudohorn cysts. Inflammatory cells are present in the dermis and infiltrate the keratosis. Normal [facility] Comment on above: Performed By: #### D #### Dermatopathology Comprehensive Metabolic Pane razia 11-08-2019 Albumin [Mass/Vol] 4.7 g/dL Normal 3.5-5.2 [facility] ALP [Catalytic activity/Vol] 63 U/L Normal 40-129 [facility] ALT [Catalytic activity/Vol] 45 U/L High 0-40 [facility] Anion gap [Moles/Vol] 21 mmol/L High 7-16 [facility] AST [Catalytic activity/Vol] 25 U/L Normal 0-39 [facility] Bilirubin [Mass/Vol] 0.6 mg/dL Normal 0.0-1.2 [facility] Calcium [Mass/Vol] 10.2 mg/dL Normal 8.6-10.2 [facility] Chloride [Moles/Vol] 108 mmol/L High 98-107 [facility] CO2 [Moles/Vol] 18 mmol/L Low 22-29 [facility] Creatinine [Mass/Vol] 1.2 mg/dL Normal 0.7-1.2 [facility] GFR/1.73 sq M predicted among blacks MDRD (S/P/Bld) [Vol rate/Area] mL/min/{1.73_m2} Normal [facility] GFR/1.73 sq M predicted among non-blacks MDRD (S/P/Bld) [Vol rate/Area] mL/min/{1.73_m2} Normal >=60 [facility] Comment on above: Result Comment: Boat Cleaning Supervisor renard Kidney Disease: less than 60 ml/min/1.73 sq.m. Kidney Failure: less than 15 ml/min/1.73 sq.m. Results valid for patients 18 years and older. Glucose [Mass/Vol] 113 mg/dL High 74-99 [facility] Potassium [Moles/Vol] 4.8 mmol/L Normal 3.5-5.0 [facility] Protein [Mass/Vol] 7.3 g/dL Normal 6.4-8.3 [facility] Sodium [Moles/Vol] 147 mmol/L High 132-146 [facility] Urea nitrogen [Mass/Vol] 18 mg/dL Normal 6-20 [facility] Comprehensive Metabolic Pane lOrdered By: Yoselyn Hendrix on 11-08-2019 Albumin [Mass/Vol] 4.7 g/dL 3.5 - 5.2 g/dL [facility] [employer] Work Phone: ALP [Catalytic activity/Vol] 63 U/L 40 - 129 U/L [facility] [employer] Phone: ALT [Catalytic activity/Vol] 45 U/L High 0 - 40 U/L [facility] [employer] Phone: Anion gap [Moles/Vol] 21 mmol/L High 7 - 16 mmol/L [facility] [employer] Phone: AST [Catalytic activity/Vol] 25 U/L 0 - 39 U/L [facility] [employer] Phone: Bilirubin [Mass/Vol] 0.6 mg/dL 0 - 1.2 mg/dL [facility] [employer] Phone: Calcium [Mass/Vol] 10.2 mg/dL 8.6 - 10. 2 mg/dL [facility] [employer] Phone: Chloride [Moles/Vol] 108 mmol/L High 98 - 10 7 mmol/L [facility] [employer] Phone: CO2 [Moles/Vol] 18 mmol/L Low 22 - 29 mmol/L [facility] [employer] Phone: Creatinine [Mass/Vol] 1.2 mg/dL 0.7 - 1.2 mg/dL [facility] [employer] Phone: GFR >60 [facility] [employer] Work Phone: GFR Non- >60 >=6 0 mL/min/1.73 [employer] Phone: Comment on above: Chronic Kidney Disea se: less than 60 ml/min/1.73 sq.m. Kidney Failure: less than 15 ml/min/1.73 sq.m. Results valid for patients 18 years and older. Glucose [Mass/Vol] 113 mg/dL High 74 - 99 mg/dL [facility] [employer] Work Phone: Potassium [Moles/Vol] 4.8 mmol/L 3.5 - 5 mmol/L [facility] Phone: Protein [Mass/Vol] 7.3 g/dL 6.4 - 8.3 g/dL [facility] [employer] Work Phone: Sodium [Moles/Vol] 147 mmol/L High 132 - 146 mmol/L [facility] Phone: Urea nitrogen [Mass/Vol] 18 mg/dL 6 - 20 mg/d L [employer] Phone: Lipid Panelon 11-08-2019 Cholesterol [Mass/Vol] 196 mg/dL Normal 0-199 [facility] Cholesterol in HDL [Mass/Vol] 31 mg/dL Normal >40 [facility] Cholesterol in LDL [Mass/Vol] 109 mg/dL High 0-99 [facility] Triglyceride [Mass/Vol] 278 mg/dL High 0-149 [facility] VLDL Cholesterol (Calculated) 56 mg/dL Normal [facility] Lipid PanelOrdered By: Mando Hendrix on 11-08-2019 Cholesterol [Mass/Vol] 196 mg/dL 0 - 199 mg/dL [employer] Phone: Cholesterol in HDL [Mass/Vol] 31 mg/dL >40 [employer] Phone: Cholesterol in LDL [Mass/Vol] 109 mg/dL High 0 - 99 mg/dL [facility] Phone: Magnesium [Mass/Vol] 56 mg/dL [employer] Phone: Triglyceride [Mass/Vol] 278 mg/dL High 0 - 149 mg/d L [employer] Work Phone: No Panel InformationOrdered By: Yoselyn Hendrix on 11-08-2019 Interpretation and review of laboratory results Abnormal [employer] Work Phone: PSA Screenon 11-08-2019 PSA Screen 1.02 ng/mL Normal 0.00-4.00 [facility] Vital Signs Date Time Vital Sign Value Performing Clinician Faci lit 03-29-2022 08:29-0400 Body temperature 97.2 [degF] Kt Garcia MD Work Phone: [employer] 03-29-2022 08:29-0400 Diastolic blood pressure 71 mm[Hg] Kt Garcia MD Work Phone: [employer] 03-29-2022 08:29-0400 Heart rate 69 /min Kt Garcia MD Work Phone: [employer] 03-29-2022 08:29-0400 Respiratory rate 18 /min Kt Garcia MD Work Phone: [employer] 03-29-2022 08:29-0400 SaO2% (BldA) [Mass fraction] 96 % Kt Garcia MD Work Phone: [employer] 03-29-2022 08:29-0400 Systolic blood pressure 107 mm[Hg] Kt Garcia MD Work Phone: [employer] 03-25-2022 09:59-0400 Body height 172.7 cm Kt Garcia MD Work Phone: [employer] 03-25-2022 09:59-0400 Body mass index (BMI) [Ratio] 28.13 kg/m2 Kt Garcia MD Work Phone: [employer] 03-25-2022 09:59-0400 Body weight 83.92 kg Kt Garcia MD Work Phone: [facility] Encounters Encounter Date Encounter Type Care Provider Facility Start: 04-28-2022 End: 04-28-2022 Subsequent hospital visit by physician Bora Ruano MD Work Phone: [facility] Non-Patient Comment on above: Suspected COVID-19 v irus infection Start: 03-29-2022 End: 03-29-2022 ambulatory KT Nicol BRENDEN [facility] Start: 03-29-2022 End: 03-29-2022 Subsequent hospital visit by physician Kt Garcia MD Work Phone: [facility] Start: 11-08-2019 End: 11-11-2019 Patient encounter procedure YOSELYN HENDRIX [facility] Start: 11-08-2019 End: 11-10-2019 Subsequent hospital visit [...] Detail Author Start: 12-07-2026 Lipid panel Lipids [facility] [employer] Start: 11-08-2024 Lipid screen Lipid screen [facility] Work Phone: Start: 12-07-2022 Depression Screen Depression Screen [facility] Start: 06-23-2022 FLU (#1) FLU (#1) [facility] Start: 04-14-2022 End: 04-14-2022 Patient encounter procedure 04/14/2022 Office Visit General Surgery Kt Garcia MD [address] [place] [address] [facility] [employer] [facility] Start: 03-29-2022 End: 03-29-2022 Colonoscopy flx dx w/collj spec when pfrmd COLORECTAL CANCER SCREENING, NOT HIGH RISK SCREENING 03/29/2022 7:15 AM EDT [facility] [employer] [facility] Start: 11-08-2020 Creatinine monitoring Creatinine mon itoring [facility] [employer] Work Phone: Start: 11-08-2020 Potassium monitoring Potassium monit oring [facility] [employer] Work Phone: Start: 02-22-2020 Shingles vaccine (1 of 2) Shingles vaccine (1 of 2) [facility] Start: 06-23-2019 Influenza vaccination Flu vaccine (# 1) [facility] [employer] Phone: Start: 2015 Screening for malign ant neoplasm of colon [facility] Start: 2010 Diabetes screen Diabetes screen [facility] [employer] Work Phone: Start: 09-24-2009 MMR (1 of 1 - Standa rd series) MMR (1 of 1 - Standard series) [facility] Start: 09-24-2009 Varicella (1 of 2 - 2-dose childhood series) Varicella (1 of 2 - 2-dose childhood series) [facility] Start: 2005 Diabetes screen Diabetes screen [facility] Start: 1989 DTaP/Tdap/Td vaccine (1 - Tdap) DTaP/Tdap/Td vaccine (1 - Tdap) [facility] Start: 02-22-1988 Hepatitis C screening Hepatitis C sc reen [facility] Start: 1986 MenB (1 of 2 - MenB 2-Dose Series) MenB (1 of 2 - MenB 2-Dose Series) [facility] Start: 1985 HIV screen HIV screen [facility] Work Phone: Start: 1985 HIV screening HIV screen [facility] Start: 1981 DTaP/Tdap/Td vaccine (1 - Tdap) DTaP/Tdap/Td vaccine (1 - Tdap) [facility] Work Phone: Start: 1977 Tetanus Diphtheria a nd Pertussis Vaccines (1 - Tdap) Tetanus Diphtheria and Pertussis Vaccines (1 - Tdap) [facility] End: 04-28-2022 SARS CoV-2 RT-PCR 1 SARS CoV-2 RT-PCR 1 Microbiology Timed Suspected Covid-19 Virus Infection 1 Occurrences starting 04/28/2022 until 04/28/2022 [facility] Work Phone: Comment on above: 1 Occurrences starti 04/28/2022 until 04/28/2022 Surgical Pathology Surgical Path ology Lab Routine Release Upon Ordering for 1 Occurrences starting 03/29/2022 [facility] Work Phone: Comment on above: Release Upon Orderin g for 1 Occurrences starting 03/29/2022 Immunizations Immunization Date Immunization Notes Care Provider Fa cility 08-26-2021 COVID-19, Moderna, Booster, PF, 50mcg/0.25ml Kt Garcia MD Work Phone: [facility] Work Phone: 11-18-2020 COVID-19, Moderna, Primary or Immunocompromised, PF, 100mcg/0.5mL Kt Garcia MD Work Phone: [facility] Work Phone: 10-20-2020 COVID-19, Moderna, Primary or Immunocompromised, PF, 100mcg/0.5mL Kt Garcia MD Work Phone: [employer] Work Phone: Payers Date Payer Category Payer Unknown [id number] 2014 Unknown [employer] [address] xxxxxxxxxxxx 2014-Present [phone] [address] [place] [address] xxxxxxxxxxxx [id number] 1970 Unknown [id number] 1970 Unknown [id number] Social History Date Type Detail Facility Start: 10-05-2017 End: 11-08-2019 Tobacco smoking status [facility] Never smoker [employer] Start: 11-08-2019 End: 03-25-2022 Alcohol intake Current non-drinker of alcohol ([facility]) [employer] Phone: Start: 1970 Sex Assigned At Not on file [employer] Work Phone: Start: 10-05-2017 Tobacco use and exposure Smokeless tobacco non-user [employer] Work Phone: Start: 12-07-2021 History SDOH Financial [employer] Phone: Start: 12-07-2021 History SDOH Food Worry [employer] Phone: Start: 12-03-2020 History SDOH Transpo rt Med [employer] Phone: Start: 03-19-2022 End: 04-28-2022 Exposure to SARS-CoV-2 (event) Not sure [facility] Tobacco smoking stat [facility] Tobacco smoking consumption unknown [facility] History of Present illness Narrative 03-29-2022 Lisha Yepez RN - 03/29/2022 7:59 AM Akash Mendoza RN - 03/29/2022 7:52 AM Kraig Lemus RN - 03/25/2022 10:00 AM EDT Note Date & Type Note Facility 03-29-2022 History of Present illness Narrative Call light within reach. Abdomen non-distended and bowel sounds active times four quadrants. [facility] PRE-ADMISSION TESTING INSTRUCTIONS ARRIVAL INSTRUCTIONS: [x] Parking the day of Surgery is located in the Main Entrance lot. Upon entering the main door make an immediate right to the surgery reception centre manager desk. [x] Bring photo ID and insurance card [] Bring in a copy of Living will or Durable Power of belt dresser papers. [x] Please be sure to arrange for responsible adult to provide transportation to and from the hospital [x] Please arrange for responsible adult to be with you for the 24 hour period post procedure due to having anesthesia [x] If you awake am of surgery not feeling well or have temperature >100 please call [phone] GENERAL INSTRUCTIONS: [x] Nothing by mouth after [...] [x] Please do not wear any nail bulgarian, make up or hair products on the [...] nurse for details documented in this encounter [employer] Phone: Evaluation note Note Date & Type Note Facility Evaluation note Diagnosis Decreased urine stream Slowing of urinary stream Essential hypertension Unspecified essential hypertension Pure hyperglyceridemia documented in this encounter [employer] Phone: Evaluation note Note Date & Type Note Facility Evaluation note Diagnosis Suspected COVID-19 virus infection documented in this encounter [facility] Discharge instructions Attachments Note Date & Type Note Facility Hospital Discharge instructions The following attachments cannot be sent through Care Everywhere.Colonoscopy: Post-op (Kiswahili)documented in this encounter [employer] Phone: Reason for visit Narrative Auth/Cert Note Date & Type Note Facility Reason for visit Narrative Specialty Diagnoses / Procedures Referred By Horace t Referred To Contact Diagnoses Encounter for screening for malignant neoplasm of colon SCREENING Procedures [place] COLONOSCOPY FLX DX W/COLLJ SPEC WHEN PFRMD [place] COLONOSCOPY W/BIOPSY SINGLE/MULTIPLE [place] COLSC FLX W/RMVL OF TUMOR POLYP LESION SNARE TQ COLORECTAL CANCER SCREENING, NOT HIGH RISK Kt Garcia MD [address] [place] [address] [facility] [address] [place] [address] Referral ID Status Reason Start Date Expiration Date Visits Re quested Visits Authorized 1 1 [employer] Work Phone: Summary Purpose Family History No Family History Records FoundNo Family History Records FoundNo Family History Records FoundNo Family History Records FoundNo Family History Records Found Advance Directives No Advanced Directives Records FoundDocuments on File Type Date Recorded Patient Administrative Tech Expl anation Advance Directives and Living Will Power of Grades 9 Through 12 Teacher Documents on File Type Date Recorded Patient Administrative Tech Expl anation ACP-Advance Directive ACP-Power of Grades 9 Through 12 Teacher Latest Code Status on File Code Status Date Activated Date Inactivated Comments Full Code 03/29/2022 6:37 AM Additional Source Comments (unrecognized sect ion and content) No Status Records FoundNo Status Records FoundNo Status Records FoundNo Status Records FoundNo Status Records Found INFORMATION SOURCE (unrecogn ized section and content) DATE CREATED AUTHOR 11/10/2019 [facility] DATE CREATED AUTHOR AUTHOR'S ORGANIZ ATION 05/15/2020 [facility] DATE CREATED AUTHOR AUTHOR'S ORGANIZ ATION 12/08/2021 [facility] DATE CREATED AUTHOR AUTHOR'S ORGANIZ ATION 04/02/2022 [facility] DATE CREATED AUTHOR AUTHOR'S ORGANIZ ATION 05/10/2022 [facility] Care Teams (unrecognized sec tion and content) [employer] Relationship Specialty Start Date End Date Yoselyn Hendrix DO [address] [place], [place] [phone] PCP - General Family Medicine 10/05/17 [employer] Relationship Specialty Start Date End Date Yoselyn Hendrix DO [address] [place], [place] [phone] PCP - General Family Medicine 12/19/18 Yoselyn Hendrix, [address] [facility] [place] [address] 12/19/18 FOR RECORDS PERTAINING TO PATIENTS WHO [...] BE BASED ON THE PRIMARY CLINICAL RECORDS. [employer] provides no warranty or guarantee of the accuracy or completeness of information in this document.
[2024-06-07 09:18] LABS: Basophils Absolute Auto 0.1 10^3/uL (0.0-0.1); Basophils Percent Auto 0.9 % (0.2-2.0); Eosinophils Absolute Auto 0.1 10^3/uL (0.0-0.7); Eosinophils Percent Auto 2.2 % (0.9-7.0); Hematocrit 43.9 % (42.0-54.0); Hemoglobin 15.4 g/dL (14.0-18.0); Immature Granulocytes Abs Auto 0.02 10^3/uL (0.00-0.03); Immature Granulocytes Pct Auto 0.3 % (0.0-0.5); Mean Corpuscular HGB Conc 35.1 g/dL (29.9-35.2); Mean Corpuscular Hemoglobin 29.7 pg (25.9-34.0); Mean Corpuscular Volume 84.6 fL (80.0-94.0); Monocytes Absolute Auto 0.6 10^3/uL (0.3-0.8); Monocytes Percent Auto 8.5 % (1.7-12.0); Neutrophils Absolute Auto 3.7 10^3/uL (1.4-6.5); Neutrophils Percent Auto 57.1 % (43.0-75.0); Platelet Count 262 10^3/uL (150-450); Red Blood Count 5.19 10^6/uL (4.70-6.10); Red Cell Distribution Width 11.9 % (11.0-15.0); White Blood Count 6.5 10^3/uL (4.0-11.0)
[2024-06-07 10:24] LABS: Estimated Average Glucose 131 mg/dL; Glycohemoglobin A1C 6.2 % (4.5-6.2)
[2024-06-07 11:16] LABS: Alanine Aminotransferase 50 U/L (16-63); Albumin Globulin Ratio 1.5; Albumin Level 4.1 g/dL (3.4-5.0); Alkaline Phosphatase 59 U/L (46-116); Anion Gap 12.9; Aspartate Amino Transferase 20 U/L (15-37); BUN Creatinine Ratio 14.2; Bilirubin Total 0.7 mg/dL (0.2-1.0); Calcium 9.1 mg/dL (8.5-10.1); Carbon Dioxide 26.1 mmol/L (21.0-32.0); Chloride 103 mmol/L (98-107); Cholesterol 181 mg/dL (<=200); Estimated GFR (African America >60 (>=60); Estimated GFR (Non-African Ame 59 (>=60); Free T3 3.13 pg/mL (2.18-3.98); Globulin 2.7 g/dL; Glucose 152 mg/dL (74-106); HDL Cholesterol 36 mg/dL (40-60); Sodium 138 mmol/L (136-145); Thyroid Stimulating Hormone 1.314 uIU/mL (0.358-3.740); Total Protein 6.8 g/dL (6.4-8.2); Triglycerides 153 mg/dL (<=150); VLDL CHOLESTEROL 30.6 mg/dL
[2024-06-07 11:27] LABS: Prostate Specific Antigen Scrn 1.29 ng/mL (<=4.00)
== END 2024-06-07 08:45 | disposition home or self-care (01) ==
LOC: LAB 08:46
PROVIDERS: PCP Family Medicine; Visit Provider Family Medicine
DX: Z00.00 Encounter for general adult medical examination without abnormal findings (principal)
CPT/HCPCS: 36415; 80053; 80061; 83036; 84436; 84443; 84481; 85025; G0103

== ENCOUNTER 2024-11-08 09:33 | Outpatient (OUT) | payer BC, SELFPAY ==
--- OUTSIDE RECORDS SUMMARY | 2024-11-08 09:49 | XMS_ITS | CCD ---
Author Organization [facility] Inform ion Partnership [facility] Care Team Providers Care Tariff Expert Name Role Phone YOSELYN HENDRIX Referring Unavaila [...] RNA SHERWIN+probe Ql (Unsp spec) Negative Normal [facility] Comment on above: Order Comment: Is th is a pre-procedure screening test?->No Release to patient->Automatic 15619&Nasal swab Result Comment: NEGA TIVE: SARS-CoV-2 RNA [...] (EUA) and has been verified by [facility] [place] [facility] [place]. This test is only authorized for the [...] at the following links: For Healthcare Providers: www.fda.gov/media/778328/download For Patients: www.fda.gov/media/585250/download - Reference Value: Negative Performed By: #### C OVID #### [place] [address] CIERA SARS CoV-2 RT PCR Not detected Normal [facility] Comment on above: Order Comment: Is th is a pre-procedure screening test?->No Release to patient->Automatic [id number]&Nasal swab Performed By: #### C OVID #### [place] [address] SARS-CoV-2 (COVID-19) RT-PCR on 04-28-2022 Date of Symptom Onset [id number] Normal [facility] Comment on above: Order Comment: Is th is a pre-procedure screening test?->No Release to patient->Automatic 75838&Nasal swab Performed By: #### C OVID #### [place] [address] ICU? No Normal [facility] Comment on above: Order Comment: Is th is a pre-procedure screening test?->No Release to patient->Automatic 91560&Nasal swab Performed By: #### C OVID #### [place] [address] Resident in congregate care setting? No Normal [facility] Comment on above: Order Comment: Is th is a pre-procedure screening test?->No Release to patient->Automatic 78389&Nasal swab Performed By: #### C OVID #### [facility] [address] [place] [address] SARS-CoV-2 (COVID-19) RNA SHERWIN+probe Ql (Unsp spec) Yes Normal [facility] Comment on above: Order Comment: Is th is a pre-procedure screening test?->No Release to patient->Automatic 42592&Nasal swab Performed By: #### C OVID #### [address] [address] Symptomatic as defined by CDC? Yes Normal [facility] Comment on above: Order Comment: Is th is a pre-procedure screening test?->No Release to patient->Automatic 33690&Nasal swab Performed By: #### C OVID #### [address] [address] Surgical Specimenon 03-29-20 Surgical Specimen [facility] [address] [address] FINAL SURGICAL PATHOLOGY REPORT NAME: PANKAJ COLEMAN Date of 03/29/2022 Collection: Medical Record [id number] Date of 03/29/2022 Number: Receipt: Age: 52 Y Sex: M Date 04/01/2022 08:52 Reported: Date Of : 1970 [facility] [id number] Admitting KT GARCIA Number: Physician: Patient SAGE [...] dimension. Entirely submitted in B1. (TIFFANIE:YARELY) CODES: [id number]; Department of Pathology Page 1 of 1 Normal [facility] CBC With Platelet No Differe ntialon 12-07-2021 Hematocrit (Bld) [Volume fraction] 44.8 % Normal 37.0-54.0 [facility] Hemoglobin (Bld) [Mass/Vol] 15.2 g/dL Normal 12.5-16.5 [facility] MCH (RBC) [Entitic mass] 29.3 pg Normal 26.0-35.0 [facility] MCHC 33.9 % Normal 32.0-34.5 [facility] MCV (RBC) [Entitic vol] 86.5 fL Normal 80.0-99.9 [facility] Platelet Count 273 E9/L Normal 130-450 [facility] Platelet mean volume (Bld) [Entitic vol] 10.0 fL Normal 7.0-12.0 [facility] RBC 5.18 E12/L Normal 3.80-5.80 [facility] RDW 12.5 fL Normal 11.5-15.0 [facility] WBC 6.4 E9/L Normal 4.5-11.5 [facility] Comprehensive Metabolic Pane razia 12-07-2021 Albumin [Mass/Vol] 4.7 g/dL Normal 3.5-5.2 [facility] ALP [Catalytic activity/Vol] 51 U/L Normal 40-129 [facility] ALT [Catalytic activity/Vol] 30 U/L Normal 0-40 [facility] Anion gap [Moles/Vol] 10 mmol/L Normal 7-16 [facility] AST [Catalytic activity/Vol] 21 U/L Normal 0-39 [facility] Bilirubin [Mass/Vol] 0.5 mg/dL Normal 0.0-1.2 [facility] Calcium [Mass/Vol] 9.8 mg/dL Normal 8.6-10.2 [facility] Chloride [Moles/Vol] 105 mmol/L Normal 98-107 [facility] CO2 [Moles/Vol] 27 mmol/L Normal 22-29 [facility] Creatinine [Mass/Vol] 1.3 mg/dL High 0.7-1.2 [facility] GFR/1.73 sq M.predicted among blacks MDRD (S/P/Bld) [Vol rate/Area] mL/min/{1.73_m2} Normal [facility] GFR/1.73 sq M.predicted among non-blacks MDRD (S/P/Bld) [Vol rate/Area] 58 mL/min/{1.73_m2} Normal >=60 [facility] Comment on above: Result Comment: Accounting Director renard Kidney Disease: less than 60 ml/min/1.73 sq.m. Kidney Failure: less than 15 ml/min/1.73 sq.m. Results valid for patients 18 years and older. Glucose [Mass/Vol] 114 mg/dL High 74-99 [facility] Potassium [Moles/Vol] 4.7 mmol/L Normal 3.5-5.0 [facility] Protein [Mass/Vol] 6.9 g/dL Normal 6.4-8.3 [facility] Sodium [Moles/Vol] 142 mmol/L Normal 132-146 [facility] Urea nitrogen [Mass/Vol] 17 mg/dL Normal 6-20 [facility] Lipid Panelon 12-07-2021 Cholesterol [Mass/Vol] 179 mg/dL Normal 0-199 [facility] Cholesterol in HDL [Mass/Vol] 33 mg/dL Normal >40 [facility] Cholesterol in LDL [Mass/Vol] 115 mg/dL High 0-99 [facility] Triglyceride [Mass/Vol] 156 mg/dL High 0-149 [facility] VLDL Cholesterol (Calculated) 31 mg/dL Normal [facility] PSA Screenon 12-07-2021 PSA Screen 0.75 ng/mL Normal 0.00-4.00 [facility] SARS-CoV-2 (COVID-19) RT-PCR on 09-30-2021 SARS-CoV-2 (COVID-19) RNA SHERWIN+probe Ql (Unsp spec) Negative Normal [facility] Comment on above: Order Comment: PATY PUCKETT [...] Authorization (EUA) and has been verified by [facility]. This test is only authorized [...] at the following links: For Healthcare Providers: www.fda.gov/media/274084/download For Patients: www.fda.gov/media/785797/download - Reference Value: Negative Performed By: #### C OVID #### [facility] [address] [place] [address] CIERA SARS CoV-2 RT PCR Not detected Normal [facility] Comment on above: Order Comment: PATY PUCKETT SICK COVID 12:00 Performed By: #### C OVID #### [facility] [address] [place] [address] SARS-CoV-2 (COVID-19) RT-PCR on 07-01-2021 SARS-CoV-2 (COVID-19) RNA SHERWIN+probe Ql (Unsp spec) Negative Normal [facility] Comment on above: Result Comment: NEGA TIVE: [...] Ciera SARS-CoV-2 assay on the Donell Ciera [employer] System. - Comment: This test has received FDA Emergency Use Authorization (EUA) and has been verified by [facility]. This test is only authorized for [...] at the following links: For Healthcare Providers: www.fda.gov/media/263317/download For Patients: www.fda.gov/media/086005/download - Reference Value: Negative Performed By: #### C OVID #### [place] [address] Dermatopathologyon 0 Dermatopathology [facility] [address] [place] [id number] DERMATOPATHOLOGY REPORT [facility]. [id number] Location: [facility] Date of Procedure: 05/06/2020 Race: UNKNOWN* Date Received: 05/07/2020 /Sex: 1970 (Age: 50) / M Date Reported: 05/08/2020 Other: Submitting Physician:NOMAN WEEKS PA-C FINAL DIAGNOSIS SKIN, LEFT NECK, BIOPSY: SEBORRHEIC KERATOSIS. Electronically Signed Out by NANO BANKS M.D. Electronically Signed Out By NANO BANKS MD/[facility] By the signature on this report, the individual or group listed as making the Final Interpretation/Katie gnosis certifies that they have reviewed this case. Clinical History: Seborrheic keratosis rule out atypia. Biopsy. Specimens Submitted As: A: SKIN, LEFT NECK Gross Description: Received in formalin is a avery piece of skin measuring [id number]. The specimen is inked and embedded in toto. hip/05/07/2020 Microscopic Description: Microscopic analysis shows a papillomatous proliferation of bland keratinocytes with hyperkeratosis, acanthosis and pseudohorn cysts. Inflammatory cells are present in the dermis and infiltrate the keratosis. Normal [facility] Comment on above: Performed By: #### D #### Dermatopathology Comprehensive Metabolic Pane razia 11-08-2019 Albumin [Mass/Vol] 4.7 g/dL Normal 3.5-5.2 [facility] ALP [Catalytic activity/Vol] 63 U/L Normal 40-129 [facility] ALT [Catalytic activity/Vol] 45 U/L High 0-40 [facility] Anion gap [Moles/Vol] 21 mmol/L High 7-16 [facility] AST [Catalytic activity/Vol] 25 U/L Normal 0-39 [facility] Bilirubin [Mass/Vol] 0.6 mg/dL Normal 0.0-1.2 [facility] Calcium [Mass/Vol] 10.2 mg/dL Normal 8.6-10.2 [facility] Chloride [Moles/Vol] 108 mmol/L High 98-107 [facility] CO2 [Moles/Vol] 18 mmol/L Low 22-29 [facility] Creatinine [Mass/Vol] 1.2 mg/dL Normal 0.7-1.2 [facility] GFR/1.73 sq M predicted among blacks MDRD (S/P/Bld) [Vol rate/Area] mL/min/{1.73_m2} Normal [facility] GFR/1.73 sq M predicted among non-blacks MDRD (S/P/Bld) [Vol rate/Area] mL/min/{1.73_m2} Normal >=60 [facility] Comment on above: Result Comment: Accounting Director renard Kidney Disease: less than 60 ml/min/1.73 sq.m. Kidney Failure: less than 15 ml/min/1.73 sq.m. Results valid for patients 18 years and older. Glucose [Mass/Vol] 113 mg/dL High 74-99 [facility] Potassium [Moles/Vol] 4.8 mmol/L Normal 3.5-5.0 [facility] Protein [Mass/Vol] 7.3 g/dL Normal 6.4-8.3 [facility] Sodium [Moles/Vol] 147 mmol/L High 132-146 [facility] Urea nitrogen [Mass/Vol] 18 mg/dL Normal 6-20 [facility] Comprehensive Metabolic Pane lOrdered By: Yoselyn Hendrix on 11-08-2019 Albumin [Mass/Vol] 4.7 g/dL 3.5 - 5.2 g/dL [facility] [employer] Work Phone: ALP [Catalytic activity/Vol] 63 U/L 40 - 129 U/L [facility] [employer] Phone: ALT [Catalytic activity/Vol] 45 U/L High 0 - 40 U/L [facility] [employer] Phone: Anion gap [Moles/Vol] 21 mmol/L High 7 - 16 mmol/L [facility] [employer] Phone: AST [Catalytic activity/Vol] 25 U/L 0 - 39 U/L [facility] [employer] Phone: Bilirubin [Mass/Vol] 0.6 mg/dL 0 - 1.2 mg/dL [facility] [employer] Phone: Calcium [Mass/Vol] 10.2 mg/dL 8.6 - 10. 2 mg/dL [facility] [employer] Phone: Chloride [Moles/Vol] 108 mmol/L High 98 - 10 7 mmol/L [facility] [employer] Phone: CO2 [Moles/Vol] 18 mmol/L Low 22 - 29 mmol/L [facility] [employer] Phone: Creatinine [Mass/Vol] 1.2 mg/dL 0.7 - 1.2 mg/dL [facility] [employer] Phone: GFR >60 [facility] [employer] Work Phone: GFR Non- >60 >=6 0 mL/min/1.73 [employer] Phone: Comment on above: Chronic Kidney Disea se: less than 60 ml/min/1.73 sq.m. Kidney Failure: less than 15 ml/min/1.73 sq.m. Results valid for patients 18 years and older. Glucose [Mass/Vol] 113 mg/dL High 74 - 99 mg/dL [facility] [employer] Work Phone: Potassium [Moles/Vol] 4.8 mmol/L 3.5 - 5 mmol/L [facility] Phone: Protein [Mass/Vol] 7.3 g/dL 6.4 - 8.3 g/dL [facility] [employer] Work Phone: Sodium [Moles/Vol] 147 mmol/L High 132 - 146 mmol/L [facility] Phone: Urea nitrogen [Mass/Vol] 18 mg/dL 6 - 20 mg/d L [employer] Phone: Lipid Panelon 11-08-2019 Cholesterol [Mass/Vol] 196 mg/dL Normal 0-199 [facility] Cholesterol in HDL [Mass/Vol] 31 mg/dL Normal >40 [facility] Cholesterol in LDL [Mass/Vol] 109 mg/dL High 0-99 [facility] Triglyceride [Mass/Vol] 278 mg/dL High 0-149 [facility] VLDL Cholesterol (Calculated) 56 mg/dL Normal [facility] Lipid PanelOrdered By: Mando Hendrix on 11-08-2019 Cholesterol [Mass/Vol] 196 mg/dL 0 - 199 mg/dL [employer] Phone: Cholesterol in HDL [Mass/Vol] 31 mg/dL >40 [employer] Phone: Cholesterol in LDL [Mass/Vol] 109 mg/dL High 0 - 99 mg/dL [facility] Phone: Magnesium [Mass/Vol] 56 mg/dL [employer] Phone: Triglyceride [Mass/Vol] 278 mg/dL High 0 - 149 mg/d L [employer] Work Phone: No Panel InformationOrdered By: Yoselyn Hendrix on 11-08-2019 Interpretation and review of laboratory results Abnormal [employer] Work Phone: PSA Screenon 11-08-2019 PSA Screen 1.02 ng/mL Normal 0.00-4.00 [facility] Vital Signs Date Time Vital Sign Value Performing Clinician Faci lit 03-29-2022 08:29-0400 Body temperature 97.2 [degF] Kt Garcia MD Work Phone: [email or web address] 03-29-2022 08:29-0400 Diastolic blood pressure 71 mm[Hg] Kt Garcia MD Work Phone: [email or web address] 03-29-2022 08:29-0400 Heart rate 69 /min Kt Garcia MD Work Phone: [email or web address] 03-29-2022 08:29-0400 Respiratory rate 18 /min Kt Garcia MD Work Phone: [email or web address] 03-29-2022 08:29-0400 SaO2% (BldA) [Mass fraction] 96 % Kt Garcia MD Work Phone: [email or web address] 03-29-2022 08:29-0400 Systolic blood pressure 107 mm[Hg] Kt Garcia MD Work Phone: [email or web address] 03-25-2022 09:59-0400 Body height 172.7 cm Kt Garcia MD Work Phone: [email or web address] 03-25-2022 09:59-0400 Body mass index (BMI) [Ratio] 28.13 kg/m2 Kt Garcia MD Work Phone: [email or web address] 03-25-2022 09:59-0400 Body weight 83.92 kg Kt Garcia MD Work Phone: [facility] Encounters Encounter Date Encounter Type Care Provider Facility Start: 04-28-2022 End: 04-28-2022 Subsequent hospital visit by physician Bora Ruano MD Work Phone: [facility] Non-Patient Comment on above: Suspected COVID-19 v irus infection Start: 03-29-2022 End: 03-29-2022 ambulatory KT Nicol BRENDEN [facility] Start: 03-29-2022 End: 03-29-2022 Subsequent hospital visit by physician Kt Garcia MD Work Phone: [facility] Start: 11-08-2019 End: 11-11-2019 Patient encounter procedure YOSELYN HENDRIX [facility] Start: 11-08-2019 End: 11-10-2019 Subsequent hospital [...] Detail Author Start: 12-07-2026 Lipid panel Lipids [facility] [employer] Start: 11-08-2024 Lipid screen Lipid screen [facility] Work Phone: Start: 12-07-2022 Depression Screen Depression Screen [facility] Start: 06-23-2022 FLU (#1) FLU (#1) [facility] Start: 04-14-2022 End: 04-14-2022 Patient encounter procedure 04/14/2022 Office Visit General Surgery Kt Garcia MD [address] [place] [address] [facility] [employer] [facility] Start: 03-29-2022 End: 03-29-2022 Colonoscopy flx dx w/collj spec when pfrmd COLORECTAL CANCER SCREENING, NOT HIGH RISK SCREENING 03/29/2022 7:15 AM EDT [facility] [employer] [facility] Start: 11-08-2020 Creatinine monitoring Creatinine mon itoring [facility] [employer] Work Phone: Start: 11-08-2020 Potassium monitoring Potassium monit oring [facility] [employer] Work Phone: Start: 02-22-2020 Shingles vaccine (1 of 2) Shingles vaccine (1 of 2) [facility] Start: 06-23-2019 Influenza vaccination Flu vaccine (# 1) [facility] [employer] Phone: Start: 2015 Screening for malign ant neoplasm of colon [facility] Start: 2010 Diabetes screen Diabetes screen [facility] [employer] Work Phone: Start: 09-24-2009 MMR (1 of 1 - Standa rd series) MMR (1 of 1 - Standard series) [facility] Start: 09-24-2009 Varicella (1 of 2 - 2-dose childhood series) Varicella (1 of 2 - 2-dose childhood series) [facility] Start: 2005 Diabetes screen Diabetes screen [facility] Start: 1989 DTaP/Tdap/Td vaccine (1 - Tdap) DTaP/Tdap/Td vaccine (1 - Tdap) [facility] Start: 02-22-1988 Hepatitis C screening Hepatitis C sc reen [facility] Start: 1986 MenB (1 of 2 - MenB 2-Dose Series) MenB (1 of 2 - MenB 2-Dose Series) [facility] Start: 1985 HIV screen HIV screen [facility] Work Phone: Start: 1985 HIV screening HIV screen [facility] Start: 1981 DTaP/Tdap/Td vaccine (1 - Tdap) DTaP/Tdap/Td vaccine (1 - Tdap) [facility] Work Phone: Start: 1977 Tetanus Diphtheria a nd Pertussis Vaccines (1 - Tdap) Tetanus Diphtheria and Pertussis Vaccines (1 - Tdap) [facility] End: 04-28-2022 SARS CoV-2 RT-PCR 1 SARS CoV-2 RT-PCR 1 Microbiology Timed Suspected Covid-19 Virus Infection 1 Occurrences starting 04/28/2022 until 04/28/2022 [facility] Work Phone: Comment on above: 1 Occurrences starti 04/28/2022 until 04/28/2022 Surgical Pathology Surgical Path ology Lab Routine Release Upon Ordering for 1 Occurrences starting 03/29/2022 [facility] Work Phone: Comment on above: Release Upon Orderin g for 1 Occurrences starting 03/29/2022 Immunizations Immunization Date Immunization Notes Care Provider Fa cility 08-26-2021 COVID-19, Moderna, Booster, PF, 50mcg/0.25ml Kt Garcia MD Work Phone: [facility] Work Phone: 11-18-2020 COVID-19, Moderna, Primary or Immunocompromised, PF, 100mcg/0.5mL Kt Garcia MD Work Phone: [facility] Work Phone: 10-20-2020 COVID-19, Moderna, Primary or Immunocompromised, PF, 100mcg/0.5mL Kt Garcia MD Work Phone: [email or web address] Work Phone: Payers Date Payer Category Payer Unknown [id number] 2014 Unknown [employer] [address] xxxxxxxxxxxx 2014-Present [phone] [address] [place] [address] xxxxxxxxxxxx [id number] 1970 Unknown [id number] 1970 Unknown [id number] Social History Date Type Detail Facility Start: 10-05-2017 End: 11-08-2019 Tobacco smoking status [facility] Never smoker [employer] Start: 11-08-2019 End: 03-25-2022 Alcohol intake Current non-drinker of alcohol ([facility]) [employer] Phone: Start: 1970 Sex Assigned At Not on file [employer] Work Phone: Start: 10-05-2017 Tobacco use and exposure Smokeless tobacco non-user [employer] Work Phone: Start: 12-07-2021 History SDOH Financial 5 [employer] Phone: Start: 12-07-2021 History SDOH Food Worry 1 [employer] Phone: Start: 12-03-2020 History SDOH Transpo rt Med 2 [employer] Phone: Start: 03-19-2022 End: 04-28-2022 Exposure to SARS-CoV-2 (event) Not sure [facility] Tobacco smoking stat [facility] Tobacco smoking consumption unknown [facility] History of Present illness Narrative 03-29-2022 Lisha Yepez RN - 03/29/2022 7:59 AM Akash Mendoza RN - 03/29/2022 7:52 AM Kraig Lemus RN - 03/25/2022 10:00 AM EDT Note Date & Type Note Facility 03-29-2022 History of Present illness Narrative Call light within reach. Abdomen non-distended and bowel sounds active times four quadrants. [facility] PRE-ADMISSION TESTING INSTRUCTIONS ARRIVAL INSTRUCTIONS: [x] Parking the day of Surgery is located in the Main Entrance lot. Upon entering the main door make an immediate right to the surgery center receptionist desk. [x] Bring photo ID and insurance card [] Bring in a copy of Living will or Durable Power of deputy attorney general papers. [x] Please be sure to arrange for responsible adult to provide transportation to and from the hospital [x] Please arrange for responsible adult to be with you for the 24 hour period post procedure due to having anesthesia [x] If you awake am of surgery not feeling well or have temperature >100 please call [phone] GENERAL INSTRUCTIONS: [x] Nothing by mouth after [...] [x] Please do not wear any nail ukrainian, make up or hair products on the [...] nurse for details documented in this encounter [employer] Phone: Evaluation note Note Date & Type Note Facility Evaluation note Diagnosis Decreased urine stream Slowing of urinary stream Essential hypertension Unspecified essential hypertension Pure hyperglyceridemia documented in this encounter [employer] Phone: Evaluation note Note Date & Type Note Facility Evaluation note Diagnosis Suspected COVID-19 virus infection documented in this encounter [facility] Discharge instructions Attachments Note Date & Type Note Facility Hospital Discharge instructions The following attachments cannot be sent through Care Everywhere.Colonoscopy: Post-op (Pakistani)documented in this encounter [employer] Phone: Reason for visit Narrative Auth/Cert Note Date & Type Note Facility Reason for visit Narrative Specialty Diagnoses / Procedures Referred By Horace t Referred To Contact Diagnoses Encounter for screening for malignant neoplasm of colon SCREENING Procedures IA COLONOSCOPY FLX DX W/COLLJ SPEC WHEN PFRMD IA COLONOSCOPY W/BIOPSY SINGLE/MULTIPLE IA COLSC FLX W/RMVL OF TUMOR POLYP LESION SNARE TQ COLORECTAL CANCER SCREENING, NOT HIGH RISK Kt Garcia MD [address] [place] [address] [facility] [employer] [address] [place] [address] Referral ID Status Reason Start Date Expiration Date Visits Re quested Visits Authorized 1 1 [employer] Work Phone: Summary Purpose Family History No Family History Records FoundNo Family History Records FoundNo Family History Records FoundNo Family History Records FoundNo Family History Records Found Advance Directives No Advanced Directives Records FoundDocuments on File Type Date Recorded Patient Configuration Engineer Expl anation Advance Directives and Living Will Power of Custom Tailor Documents on File Type Date Recorded Patient Configuration Engineer Expl anation ACP-Advance Directive ACP-Power of Custom Tailor Latest Code Status on File Code Status Date Activated Date Inactivated Comments Full Code 03/29/2022 6:37 AM Additional Source Comments (unrecognized sect ion and content) No Status Records FoundNo Status Records FoundNo Status Records FoundNo Status Records FoundNo Status Records Found INFORMATION SOURCE (unrecogn ized section and content) DATE CREATED AUTHOR 11/10/2019 [facility] DATE CREATED AUTHOR AUTHOR'S ORGANIZ ATION 05/15/2020 [facility] DATE CREATED AUTHOR AUTHOR'S ORGANIZ ATION 12/08/2021 [facility] DATE CREATED AUTHOR AUTHOR'S ORGANIZ ATION 04/02/2022 [facility] DATE CREATED AUTHOR AUTHOR'S ORGANIZ ATION 05/10/2022 [facility] Care Teams (unrecognized sec tion and content) Tariff Expert Relationship Specialty Start Date End Date Yoselyn Hendrix DO [address] [place], [place] [id number] PCP - General Family Medicine 10/05/17 Tariff Expert Relationship Specialty Start Date End Date Yoselyn Hendrix DO [address] [place], [place] [phone] PCP - General Family Medicine 12/19/18 Yoselyn Hendrix, [address] [facility] [place] [address] 12/19/18 FOR RECORDS PERTAINING TO PATIENTS WHO [...] BE BASED ON THE PRIMARY CLINICAL RECORDS. [employer] provides no warranty or guarantee of the accuracy or completeness of information in this document.
[2024-11-08 09:58] LABS: Basophils Absolute Auto 0.1 10^3/uL (0.0-0.1); Basophils Percent Auto 1.1 % (0.2-2.0); Eosinophils Absolute Auto 0.2 10^3/uL (0.0-0.7); Eosinophils Percent Auto 2.3 % (0.9-7.0); Hematocrit 42.7 % (42.0-54.0); Hemoglobin 14.7 g/dL (14.0-18.0); Immature Granulocytes Abs Auto 0.02 10^3/uL (0.00-0.03); Immature Granulocytes Pct Auto 0.3 % (0.0-0.5); Lymphocytes Absolute Auto 2.1 10^3/uL (1.2-3.8); Lymphocytes Percent Auto 32.1 % (20.5-60.0); Mean Corpuscular HGB Conc 34.4 g/dL (29.9-35.2); Mean Corpuscular Hemoglobin 29.5 pg (25.9-34.0); Mean Corpuscular Volume 85.7 fL (80.0-94.0); Mean Platelet Volume 9.8 fL (9.5-13.5); Monocytes Absolute Auto 0.6 10^3/uL (0.3-0.8); Monocytes Percent Auto 9.5 % (1.7-12.0); Neutrophils Absolute Auto 3.6 10^3/uL (1.4-6.5); Neutrophils Percent Auto 54.7 % (43.0-75.0); Platelet Count 264 10^3/uL (150-450); Red Blood Count 4.98 10^6/uL (4.70-6.10); Red Cell Distribution Width 11.9 % (11.0-15.0); White Blood Count 6.6 10^3/uL (4.0-11.0)
[2024-11-08 10:44] LABS: Estimated Average Glucose 146 mg/dL; Glycohemoglobin A1C 6.7 % (4.5-6.2)
[2024-11-08 10:51] LABS: Alanine Aminotransferase 58 U/L (16-63); Albumin Globulin Ratio 1.5; Albumin Level 4.1 g/dL (3.4-5.0); Alkaline Phosphatase 52 U/L (46-116); Anion Gap 14.8; Aspartate Amino Transferase 27 U/L (15-37); BUN Creatinine Ratio 14.3; Bilirubin Total 0.7 mg/dL (0.2-1.0); Calcium 9.2 mg/dL (8.5-10.1); Carbon Dioxide 27.6 mmol/L (21.0-32.0); Chloride 105 mmol/L (98-107); Chol HDL Ratio 4.8; Cholesterol 176 mg/dL (<=200); Estimated GFR (African America >60 (>=60 mL/min/1.73m^2); Estimated GFR (Non-African Ame 56 (>=60 mL/min/1.73m^2); Free T3 2.54 pg/mL (2.18-3.98); Globulin 2.7 g/dL; Glucose 137 mg/dL (74-106); HDL Cholesterol 37 mg/dL (40-60); Potassium 4.4 mmol/L (3.5-5.1); Sodium 143 mmol/L (136-145); Thyroid Stimulating Hormone 1.288 uIU/mL (0.358-3.740); Total Protein 6.8 g/dL (6.4-8.2); Triglycerides 119 mg/dL (<=150); VLDL CHOLESTEROL 23.8 mg/dL
[2024-11-08 10:59] LABS: Prostate Specific Antigen Scrn 1.13 ng/mL (<=4.00)
== END 2024-11-08 09:34 | disposition home or self-care (01) ==
LOC: LAB 09:35
PROVIDERS: PCP Family Medicine; Visit Provider Family Medicine
DX: Z00.00 Encounter for general adult medical examination without abnormal findings (principal)
CPT/HCPCS: 36415; 80053; 80061; 83036; 84436; 84443; 84481; 85025; G0103

== ENCOUNTER 2025-02-12 08:43 | Outpatient (OUT) | payer BC, SELFPAY ==
[2025-02-12 09:16] LABS: Basophils Absolute Auto 0.1 10^3/uL (0.0-0.1); Basophils Percent Auto 1.1 % (0.2-2.0); Eosinophils Absolute Auto 0.2 10^3/uL (0.0-0.7); Eosinophils Percent Auto 2.4 % (0.9-7.0); Hematocrit 43.5 % (42.0-54.0); Hemoglobin 15.1 g/dL (14.0-18.0); Immature Granulocytes Abs Auto 0.01 10^3/uL (0.00-0.03); Immature Granulocytes Pct Auto 0.1 % (0.0-0.5); Lymphocytes Absolute Auto 2.1 10^3/uL (1.2-3.8); Lymphocytes Percent Auto 28.1 % (20.5-60.0); Mean Corpuscular HGB Conc 34.7 g/dL (29.9-35.2); Mean Corpuscular Hemoglobin 29.9 pg (25.9-34.0); Mean Corpuscular Volume 86.1 fL (80.0-94.0); Mean Platelet Volume 9.7 fL (9.5-13.5); Monocytes Absolute Auto 0.6 10^3/uL (0.3-0.8); Monocytes Percent Auto 8.5 % (1.7-12.0); Neutrophils Absolute Auto 4.5 10^3/uL (1.4-6.5); Neutrophils Percent Auto 59.8 % (43.0-75.0); Platelet Count 266 10^3/uL (150-450); Red Blood Count 5.05 10^6/uL (4.70-6.10); White Blood Count 7.5 10^3/uL (4.0-11.0)
[2025-02-12 10:05] LABS: Alanine Aminotransferase 55 U/L (16-63); Albumin Globulin Ratio 1.7; Albumin Level 4.3 g/dL (3.4-5.0); Alkaline Phosphatase 60 U/L (46-116); Anion Gap 11.8; Aspartate Amino Transferase 31 U/L (15-37); BUN Creatinine Ratio 10.9; Bilirubin Total 0.6 mg/dL (0.2-1.0); Calcium 9.2 mg/dL (8.5-10.1); Carbon Dioxide 30.5 mmol/L (21.0-32.0); Chloride 107 mmol/L (98-107); Chol HDL Ratio 4.4; Cholesterol 182 mg/dL (<=200); Estimated GFR (African America >60 (>=60 mL/min/1.73m^2); Estimated GFR (Non-African Ame >60 (>=60 mL/min/1.73m^2); Free T3 3.08 pg/mL (2.18-3.98); Globulin 2.6 g/dL; Glucose 131 mg/dL (74-106); HDL Cholesterol 41 mg/dL (40-60); LDL Cholesterol Calculated 112.2 mg/dL; Potassium 4.3 mmol/L (3.5-5.1); Sodium 145 mmol/L (136-145); Thyroid Stimulating Hormone 0.699 uIU/mL (0.358-3.740); Total Protein 6.9 g/dL (6.4-8.2); Triglycerides 144 mg/dL (<=150); VLDL CHOLESTEROL 28.8 mg/dL
[2025-02-12 10:14] LABS: Prostate Specific Antigen Scrn 1.46 ng/mL (<=4.00)
[2025-02-12 10:27] LABS: Estimated Average Glucose 146 mg/dL; Glycohemoglobin A1C 6.7 % (4.5-6.2)
[2025-02-13 04:07] LABS: Testosterone 328 ng/dL (264-916)
== END 2025-02-12 23:59 | disposition home or self-care (01) ==
LOC: LAB 02-21 08:43
PROVIDERS: PCP Family Medicine; Visit Provider Family Medicine
DX: Z00.00 Encounter for general adult medical examination without abnormal findings (principal); E29.1 Testicular hypofunction; Z12.5 Encounter for screening for malignant neoplasm of prostate
CPT/HCPCS: 36415; 80053; 80061; 83036; 84403; 84436; 84443; 84481; 85025; G0103

== ENCOUNTER 2025-07-29 12:42 | Outpatient (OUT) | payer BC, SELFPAY ==
--- OUTSIDE RECORDS SUMMARY | 2025-07-15 13:40 | XMS_ITS | Encounter Summary ---
Author Organization [facility] Address [address] [place] [address] Care Team Providers Care Research Asst Name Role Phone Artie Martin MD Primary Care Provider [phone] Reason for Referral * Imaging (Routine) - Authorized Specialty Diagnoses / Procedures Referred By Contac t Referred To Contact [facility] Diagnoses Hearing loss of left ear, unspecified hearing loss type Procedures MR brain w and wo contrast IACs Shana Shipley MD [address] [facility] [address] [place] [address] Phone: tel: fax: [place] [facility] [address] [place] [address] Phone: tel: fax: Referral ID Status Reason Start Date Expiration Date V isits Requested Visits Authorized [id number] Authorized 07/15/2025 01/11/2026 1 1 Reason for Visit * Reason Comments Ear Problem Hearing loss Audio Encounter Details Date Type Department Care Team (Late st Contact Info) Description 07/15/2025 1:40 PM EDT Office Visit [facility] [address] [place] [address] Shana Shipley MD [address] [place] [address] Hearing loss of left ear, unspecified hearing loss type (Primary Dx) Social History Tobacco Use Types Packs/Day Years Used Date Smoking Tobacco: Never Smokeless Tobacco: Never Tobacco Cessation:Counseling Given: Not Answered Alcohol Use Standard Drinks/Week Comments Yes 0 (1 standard drink = 0.6 oz pur e alcohol) occ Sex and Gender Information Value Date Recorded Sex Assigned at Not on file Legal Sex Male 1:11 PM EDT Gender Identity Not on file Sexual Orientation Not on file documented as of this encounter Last Filed Vital Signs Vital Sign Reading Time Taken Comments Blood Pressure 122/78 07/15/2025 1:50 PM EDT Pulse 82 07/15/2025 1:50 PM EDT Temperature - - Respiratory Rate - - Oxygen Saturation - - Inhaled Oxygen Concentration - - Weight 88 kg (194 lb) 07/15/2025 1:50 PM EDT Height 172.7 cm (5' 8 ) 07/15/2025 1:50 PM EDT Body Mass Index 29.5 07/15/2025 1:50 PM EDT documented in this encounter Progress Notes * Shana Shipley MD - 07/15/2025 1:40 PM EDT Subjective Patient ID: Pankaj Coleman is a 55 y.o. male who presents for Ear Problem (Hearing loss Audio 07/14/25) Pt reports over the past few years he has noticed increased hearing loss in the left ear. No prior h/o ear problems or surgery. 07/14 audio shows essentially normal hearing in the right ear with downsloping CHL in the left ear. No otalgia or CHI. No family h/o hearing loss. Review of Systems All other systems reviewed and are negative. Family History Problem Relation Name Age of Onset Cancer Father Active Ambulatory Problems Diagnosis Date Noted Pure hyperglyceridemia 10/09/2017 Hyperlipidemia 07/14/2025 Hypertension 07/14/2025 Hypotestosteronemia in male 07/14/2025 Resolved Ambulatory Problems Diagnosis Date Noted No Resolved Ambulatory Problems No Additional Past Medical History Past Surgical History: Procedure Laterality Date VASECTOMY No Known Allergies Current Outpatient Medications on File Prior to Visit Medication Sig Dispense Refill fenofibrate (Triglide) 160 MG tablet Take 160 mg by mouth Daily lisinopril 10 MG tablet Take 10 mg by mouth Daily cetirizine (ZyrTEC) 10 MG tablet Take by mouth (Patient not taking: Reported on 07/15/2025) glimepiride (Amaryl) 2 MG tablet Take 2 mg by mouth in the morning. Take before meals. (Patient nottaking: Reported on 07/15/2025) testosterone cypionate (Depo-Testosterone) 100 MG/ML injection Inject into the shoulder, thigh, or buttocks every 14 (fourteen) days (Patient not taking: Reported on 07/15/2025) No current facility-administered medications on file prior to visit. Objective Last Recorded Vitals Vitals: 07/15/25 1350 BP: 122/78 Pulse: 82 ENT Physical Exam Constitutional Appearance: patient appears well-developed and well-nourished, Head and Face Appearance: head appears normal and face appears atraumatic; Ear Ear Canals: right ear canal normal; left ear canal normal; Tympanic Membranes: right tympanic membrane normal; left tympanic membrane normal; Ear comments: Vang ML. Nose External Nose: nares patent bilaterally; external nose normal; Internal Nose: nasal mucosa normal; Oral Cavity/Oropharynx Lips: normal; Teeth: normal; Gums: gingiva normal; Tongue: normal; Oral mucosa: normal; Hard palate: normal; Neck Neck: neck normal; neck palpation normal; Thyroid: thyroid normal; Respiratory Inspection: breathing unlabored; normal breathing rate; Auscultation: breath sounds are clear; Cardiovascular Inspection: extremities are warm and well perfused; no peripheral edema present; Auscultation: regular rate and rhythm; Assessment/Plan Diagnoses and all orders for this visit: Hearing loss of left ear, unspecified hearing loss type Audio shows a pattern of hearing loss that is much more c/w a unilateral SNHL rather than a CHL. MRI IAC and F/U. If MRI negative, I will follow with serial audios. documented in this encounter Miscellaneous Notes * Addendum Note - Aneglica Jin - 07/15/2025 1:40 PM EDTAddended by: ANGELICA JIN on: 07/15/2025 02:58 PM Modules accepted: Orders documented in this encounter Plan of Treatment Upcoming Encounters Date Type Department Care Team (Late st Contact Info) Description 08/27/2025 10:20 AM EST Office Visit [facility] [address] [facility] [address] [place] [address] Shana Shipley MD 112 [facility] [address] [place] [address] Scheduled Orders Name Type Priority Associated Diagnoses Orde r Schedule MR brain w and wo contrast IACs Imaging Routine Hearing loss of left ear, unspecified hearing loss type Expected: 07/15/2025, Expires: 07/15/2026 documented as of this encounter Visit Diagnoses Diagnosis Hearing loss of left ear, unspecified hearing loss type- Primary documented in this encounter Care Teams Research Asst Relationship Specialty Start Date End Date Artie Martin MD [address] [place] [phone] PCP - General Family Medicine 06/02/25 documented as of this encounter
--- OUTSIDE RECORDS SUMMARY | 2025-07-29 12:45 | XMS_ITS | Encounter Summary ---
Author Organization [facility] Address [address] [facility] [place] [address] Care Team Providers Care Quality Controller Name Role Phone Artie Martin MD Primary Care Provider [phone] Encounter Details Date Type Department Care Team (Latest Contact Info) Description 07/15/2025 Travel Social History Tobacco Use Types Packs/Day Years Used Date Smoking Tobacco: Never Smokeless Tobacco: Never Alcohol Use Standard Drinks/Week Comments Yes 0 (1 standard drink = 0.6 oz pur e alcohol) occ Sex and Gender Information Value Date Recorded Sex Assigned at Not on file Legal Sex Male 1:11 PM EDT Gender Identity Not on file Sexual Orientation Not on file documented as of this encounter Plan of Treatment Upcoming Encounters Date Type Department Care Team (Late st Contact Info) Description 08/27/2025 10:20 AM EST Office Visit [facility] [address] [facility] [address] [place] [address] Shana Shipley MD [address] [facility] [address] [place] [address] documented as of this encounter Visit Diagnoses Not on filedocumented in this encounter Care Teams Quality Controller Relationship Specialty Start Date End Date Artie Martin MD [address] [facility] [place] [address] PCP - General Family Medicine 06/02/25 documented as of this encounter
--- OUTSIDE RECORDS SUMMARY | 2025-07-29 12:45 | XMS_ITS | Encounter Summary ---
Author Organization [facility] Address [address] [facility], [address] [place] [address] Care Team Providers Care Obstetrician Name Role Phone Niall Allen DO Primary Care Provider Reason for Visit * Reason Comments Medication Refill Encounter Details Date Type Department Care Team (Late st Contact Info) Description 08/12/2020 [facility]ill [facility] [address] [place], [place] [phone] Niall Allen DO [address] [facility] [place] [phone] Medication Refill Social History Tobacco Use Types Packs/Day Years Used Date Smoking Tobacco: Never Smokeless Tobacco: Never Alcohol Use Standard Drinks/Week Comments No 0 (1 standard drink = 0.6 oz pur e alcohol) PHQ-2 Answer Date Recorded PHQ-2 Score 0 11/08/2019 Sex and Gender Information Value Date Recorded Sex Assigned at Not on file Legal Sex Male 5:01 AM EST Gender Identity Not on file Sexual Orientation Not on file documented as of this encounter Plan of Treatment Not on file documented as of this encounter Visit Diagnoses Diagnosis Essential hypertension Unspecified essential hypertension documented in this encounter Care Teams Obstetrician Relationship Specialty Start Date End Date Niall Allen DO [address] [place], [place] [phone] PCP - General Family Medicine 10/05/17 documented as of this encounter
--- OUTSIDE RECORDS SUMMARY | 2025-07-29 12:45 | XMS_ITS | Clinical Summary ---
Author Organization [facility] Address [address], [address] [place] [address] Care Team Providers Care Province Archivist Name Role Phone FredaNiall DO Primary Care Provider Allergies No known active allergies Medications fenofibrate (TRIGLIDE) 160 MG tablet Take 1 tablet by mouth daily 30 tablet 03/02/2023 Active lisinopril (PRINIVIL;ZESTRIL ) 10 MG tabletIndications :Essential hypertension Take 1 tablet by mouth daily 30 tablet 03/02/2023 Active Active Problems Problem Noted Date Diagnosed Date Pure hyperglyceridemia 10/09/2017 Immunizations Immunization Administration Dates Next Due COVID-19, Inactive, MODERNA BLUE border, Primary or Immunocompromised, (age 12y+) 11/18/2020,10/20/2020 COVID-19, Inactive, MODERNA Booster BLUE border, (age 18y+) 08/26/2021 Family History Medical History Relation Name Comments High Blood Pressure Father Lung Cancer Father 63 High Blood Pressure Mother Relation Name Status Comments Brother 1 1/2 Alive Brother 2 Alive Brother 3 Alive Brother 4 Alive Brother 5 Alive Father Alive Mother Alive Sister Alive Social History Tobacco Use Types Packs/Day Years Used Date Smoking Tobacco: Never Smokeless Tobacco: Never Alcohol Use Standard Drinks/Week Comments No 0 (1 standard drink = 0.6 oz pur e alcohol) Overall Financial Resource Strain (CARDIA) Rashidae r Date Recorded How hard is it for you to pa y for the very basics like food, housing, medical care, and heating? Not hard at all 12/07/2021 PHQ-2 Answer Date Recorded PHQ-9 Total Score 0 12/07/2021 Hunger Vital Sign Answer Date Recorded Within the past 12 months, y ou worried that your food would run out before you got the money to buy more. Never true 12/07/19 22 Within the past 12 months, t he food you bought just didn't last and you didn't have money to get more. Never true 12/07/2021 PRAPARE - Transportation Answer Date Re corded In the past 12 months, has l ack of transportation kept you from medical appointments or from getting medications? No 11/23 In the past 12 months, has l ack of transportation kept you from meetings, work, or from getting things needed for daily living? No 12/03/2020 Sex and Gender Information Value Date Recorded Sex Assigned at Not on file Legal Sex Male 5:01 AM EST Gender Identity Not on file Sexual Orientation Not on file Last Filed Vital Signs Vital Sign Reading Time Taken Comments Blood Pressure 107/71 03/29/2022 8:29 AM EDT Pulse 69 03/29/2022 8:29 AM EDT Temperature 36.2 C (97.2 F) 03/29/2022 8:29 AM EDT Respiratory Rate 18 03/29/2022 8:29 AM EDT Oxygen Saturation 96% 03/29/2022 8:29 AM EDT Inhaled Oxygen Concentration - - Weight 83.9 kg (185 lb) 03/25/2022 9:59 AM EDT Height 172.7 cm (5' 8 ) 03/25/2022 9:59 AM EDT Body Mass Index 28.13 03/25/2022 9:59 AM EDT Plan of Treatment Health Maintenance Due Date Last Done Comments Depression Screen 1982 HIV screen 1985 Hepatitis C screen 02/22/1988 DTaP/Tdap/Td vaccine (1 - Tdap) 1989 Hepatitis B vaccine (1 of 3 - 19+ 3-dose series) 1989 FIT/FOBT: Average risk 2015 Fecal-DNA (Cologuard): Average risk 2015 Sigmoidoscopy/CT colonography 2015 Pneumococcal 50+ years Vaccine (1 of 1 - PCV) 02/22/2020 Shingles vaccine (1 of 2) 02/22/2020 Flu vaccine (#1) 05/23/2025 08/18/2021, 08/27/2009 COVID-19 Vaccine (4 - 2024- season) 2025 08/26/2021, 11/18/2020, 10/20/2020 Lipids 12/07/2026 12/07/2021, 11/23, 11/08/2019, Additional history exists Colonoscopy 03/29/2032 03/29/2022 Colorectal Cancer Screen 03/29/2032 Hepatitis A vaccine Aged Out No longe r eligible based on patient's age to complete this topic Hib vaccine Aged Out No longer eligi ble based on patient's age to complete this topic Meningococcal (ACWY) vaccine Aged Out No longer eligible based on patient's age to complete this topic Meningococcal B vaccine Aged Out No l onger eligible based on patient's age to complete this topic Polio vaccine Aged Out No longer elig ible based on patient's age to complete this topic Procedures Procedure Name Priority Date/Time Associated Diagnosis Comments LIPID PANEL Routine 12/07/2021 9:02 AM EST Annual physical exam from Last 3 Months or Most Recently Relevant to Health Maintenance Results * (ABNORMAL) Lipid Panel (12/07/2021 9:02 AM EST) Cholesterol, Total 179 0 - 199 mg/dL 12/07/2021 2:[address] [facility] Triglycerides 156(H) 0 - 149 mg/dL 12/07/2021 2:[address] [facility] HDL 33 >40 mg/dL 12/07/2021 2:[address] [facility] LDL Calculated 115(H) 0 - 99 mg/dL 12/07/2021 2:[address] [facility] VLDL Cholesterol Calculated 31 mg/dL 12/07/2021 2:[address] [facility] BLOOD SPECIMEN / Unknown 12/07/2021 9:02 AM EST 12/07/2021 1:21 PM EST Niall Allen DO CHEMISTRY ORDERABLES F inal Result [facility] [address] [place] [address], [facility] [phone] from Last 3 Months or Most Recently Relevant to Health Maintenance Insurance [employer] Advance Directives * Full Code (Latest Code Status on File) Date Activated Date Inactivated Comments 03/29/2022 6:37 AM 03/29/2022 11:13 AM Care Teams Province Archivist Relationship Specialty Start Date End Date Niall Allen DO [address] [place] [address] PCP - General Family Medicine 10/05/17
--- OUTSIDE RECORDS SUMMARY | 2025-07-29 12:45 | XMS_ITS | Encounter Summary ---
Author Organization [facility] Address [address] [facility], [address] [place] [address] Care Team Providers Care Drug Safety Associate Name Role Phone Niall Allen DO Primary Care Provider Reason for Visit * Reason Comments Medication Refill Encounter Details Date Type Department Care Team (Late st Contact Info) Description 09/25/2019 [facility]ill [facility] [address] [facility] [address] [place], [place] [phone] Niall Allen DO [address] [facility] [place], [place] [phone] Medication Refill Social History Tobacco Use Types Packs/Day Years Used Date Smoking Tobacco: Never Smokeless Tobacco: Never Alcohol Use Standard Drinks/Week Comments No 0 (1 standard drink = 0.6 oz pur e alcohol) PHQ-2 Answer Date Recorded PHQ-2 Score 0 01/22/2019 Sex and Gender Information Value Date Recorded Sex Assigned at Not on file Legal Sex Male 5:01 AM EST Gender Identity Not on file Sexual Orientation Not on file documented as of this encounter Plan of Treatment Not on file documented as of this encounter Visit Diagnoses Not on filedocumented in this encounter Care Teams Drug Safety Associate Relationship Specialty Start Date End Date Niall Allen DO [address] [place], [place] [phone] PCP - General Family Medicine 10/05/17 documented as of this encounter
--- OUTSIDE RECORDS SUMMARY | 2025-07-29 12:45 | XMS_ITS | Encounter Summary ---
Author Organization [facility] Address [address] [facility] [place] [address] Care Team Providers Care Gin Feeder Name Role Phone Niall Allen DO Primary Care Provider Reason for Visit * Reason Comments Medication Refill Encounter Details Date Type Department Care Team (Late st Contact Info) Description 12/16/2020 Refill [facility] [address] [place], [place] [phone] Niall Allen DO [address] [place] [address] Medication Refill Social History Tobacco Use Types Packs/Day Years Used Date Smoking Tobacco: Never Smokeless Tobacco: Never Alcohol Use Standard Drinks/Week Comments No 0 (1 standard drink = 0.6 oz pur e alcohol) Overall Financial Resource Strain (CARDIA) Answe r Date Recorded How hard is it for you to pa y for the very basics like food, housing, medical care, and heating? Not hard at all 12/03/2020 PHQ-2 Answer Date Recorded PHQ-9 Total Score 0 12/03/2020 Hunger Vital Sign Answer Date Recorded Within the past 12 months, y ou worried that your food would run out before you got the money to buy more. Never true 12/03/19 21 Within the past 12 months, t he food you bought just didn't last and you didn't have money to get more. Never true 12/03/2020 PRAPARE - Transportation Answer Date Re corded [...] hypertension documented in this encounter Care Teams Gin Feeder Relationship Specialty Start Date End Date Niall Allen DO [address] [place] [address] PCP - General Family Medicine 10/05/17 documented as of this encounter
--- OUTSIDE RECORDS SUMMARY | 2025-07-29 12:45 | XMS_ITS | Clinical Summary ---
Author Organization [facility] Address [address] [place] [address] Care Team Providers Care Manager Unit Name Role Phone Artie Matrin MD Primary Care Provider [phone] Allergies No known active allergies Medications fenofibrate (Triglide) 160 MG tablet Take 160 mg by mouth Daily 05/05/2025 Active lisinopril 10 MG tablet Take 10 mg by mouth Daily Active cetirizine (ZyrTEC) 10 MG tablet Take by mouth Active glimepiride (Amaryl) 2 MG tablet Take 2 mg by mouth in the morning. Take before meals. Active testosterone cypionate (Depo-Testoster one) 100 MG/ML injection Inject into the shoulder, thigh, or buttocks every 14 (fourteen) days Active Active Problems Problem Noted Date Diagnosed Date Hyperlipidemia 07/14/2025 Hypertension 07/14/2025 Hypotestosteronemia in male 07/14/2025 Pure hyperglyceridemia 10/09/2017 Encounters Date Type Department Care Team Description 07/15/2025 1:40 PM EDT Office Visit [facility] [address] [facility] [address] [place] [address] Shana Shipley MD Hearing loss of left ear, unspecified hearing loss type (Primary Dx) 07/15/2025 Travel 07/14/2025 1:45 PM EDT Office Visit [facility] [address] [place] [address] Clau Hernandez AUD Conductive hearing loss of left ear with unrestricted hearing of right ear (Primary Dx) 07/14/2025 Bamboo flowsheet [facility] [address] [place] [phone] Clau Hernandez, AUD 07/14/2025 Travel from Last 3 Months Family History Medical History Relation Name Comments Cancer Father Relation Name Status Comments Father Mother Alive Social History Tobacco Use Types Packs/Day [...] Mass Index 29.5 07/15/2025 1:50 PM EDT Plan of Treatment Upcoming Encounters Date Type Department Care Team (Late st Contact Info) Description 08/27/2025 10:20 AM EST Office Visit [facility] [address] [facility] [address] [place] [address] Shana Shipley MD [address] [facility] [address] [place] [address] Health Maintenance Due Date Last Done Comments CT Colonography 1970 Colonoscopy 1970 Colorectal Cancer Screening 1970 FIT-DNA 1970 FIT 1970 FOBT 1970 Sigmoidoscopy 1970 Influenza Vaccine (#1) 2025 09/24/2024, 2021, 08/18/2021 Procedures Procedure Name Priority Date/Time Associated Diagnosis Comments AUDITORY FUNCTION TESTS Routine 07/14/2025 2:37 PM EDT from Last 3 Months Results * Auditory function tests (07/14/2025 2:37 PM EDT) Narrative Clau Hernandez AUD - 07/14/2025 2:37 PM EDT Pure Tone Audiometry Audio indicated essentially normal hearing in the right ear, with the exception of a mild hearing loss at 6000 Hz. The left ear exhibited normal hearing 250-2000 Hz, sloping to a mild to moderately-severe hearing loss, with a conductive component recorded at 4000 Hz. us Clau Hernandez [facility] ORDERABL ES Final Result from Last 3 Months Insurance Member Subscriber Plan / Payer (Ef fective 2023-Present) Name:Pankaj Coleman Member ID:[id number] Relation to Subscriber:Self Name:Pankaj Coleman Subscriber ID:[id number] Payer ID:Not on file Type:Not on file Address: [facility] [id number] [place] [address] Care Teams Manager Unit Relationship Specialty Start Date End Date Artie Martin MD [address] [place] [address] PCP - General Family Medicine 06/02/25
--- OUTSIDE RECORDS SUMMARY | 2025-07-29 12:45 | XMS_ITS | Encounter Summary ---
Author Organization [facility] Address [address] [facility] [place] [address] Care Team Providers Care Transporter Driver Name Role Phone Niall Allen DO Primary Care Provider Reason for Visit * Reason Comments Medication Refill Encounter Details Date Type Department Care Team (Late st Contact Info) Description 09/01/2019 Refill [facility] [address] [place], [place] [phone] Niall Allen DO [address] [facility] [address] [place], [place] [phone] Medication Refill Social History Tobacco Use Types [...] hypertension documented in this encounter Care Teams Transporter Driver Relationship Specialty Start Date End Date Niall Allen DO [address] [place], [place] [phone] PCP - General Family Medicine 10/05/17 documented as of this encounter
--- OUTSIDE RECORDS SUMMARY | 2025-07-29 12:45 | XMS_ITS | Patient Health Record ---
Author Organization [facility] [place] Address [address] [place] [address] Care Team Providers Care Government Guard Name Role Phone Abdiaziz Martin Primary Care Provider [phone] Allergies No Known Allergies Results Component Value Reference Range Notes GLYCOHEMOGLOBIN A1C Reviewed date:11/10/2024 01:45:44 PM Interpretation: Performing Lab: Notes/Report: [facility] , Glycohemoglobin A1C 6.7 4.5-6.2 % > 7.0 ACTION SUGGESTED ADA THERAPEUTIC TARGET < 7.0 ADA RECOMMENDED LIMIT 4.0 - 6.0 Estimated Average Glucose 146 Performing Lab: see note ML - [facility] LB PROF 14(COMP METB) Reviewed date:11/10/2024 01:45:44 PM Interpretation: Performing Lab: Notes/Report: [facility] , Sodium 143 136-145 mmol/L Potassium 4.4 3.5-5.1 mmol/L Chloride 105 98-107 mmol/L Carbon Dioxide 27.6 21.0-32.0 mmol/L Anion Gap 14.8 Glucose 137 74-106 mg/dL Blood Urea Nitrogen 19.0 7.0-18.0 mg/dL Creatinine 1.33 0.70-1.30 mg/dL Estimated GFR ( Catrachita >60 >=60 mL/min/1.73m 2 Estimated GFR (Non- Lakia 56 >=60 mL/min/1.73m 2 BUN Creatinine Ratio 14.3 Calcium 9.2 8.5-10.1 mg/dL Bilirubin Total 0.7 0.2-1.0 mg/dL Aspartate Amino Transferase 27 15-37 U/L Alanine Aminotransferase 58 16-63 U/L Alkaline Phosphatase 52 46-116 U/L Total Protein 6.8 6.4-8.2 g/dL Albumin Level 4.1 3.4-5.0 g/dL Globulin 2.7 Albumin Globulin Ratio 1.5 Performing Lab: see note ML - [facility] LB PSA SCREENING Reviewed date:11/10/2024 01:45:44 PM Interpretation: Performing Lab: Notes/Report: [facility] , Prostate Specific Antigen Scrn 1.13 <=4.00 ng/mL Performing Lab: see note ML - [facility] LB T4 Reviewed date:11/10/2024 01:45:44 PM Interpretation: Performing Lab: Notes/Report: [facility] , T4 Thyroxine 7.20 4.50-12.10 ug/dL Performing Lab: see note - [facility] LB TSH Reviewed date:11/10/2024 01:45:44 PM Interpretation: Performing Lab: Notes/Report: [facility] , Thyroid Stimulating Hormone 1.288 0.358-3.740 u IU/mL Performing Lab: see note ML - [facility] LB CBC AUTO DIFF Reviewed date:02/12/2025 10:16:26 AM Interpretation: Performing Lab: Notes/Report: [facility] , White Blood Count 7.5 4.0-11.0 10 3/uL Red Blood Count 5.05 4.70-6.10 10 6/uL Hemoglobin 15.1 14.0-18.0 g/dL Hematocrit 43.5 42.0-54.0 % Mean Corpuscular Volume 86.1 80.0-94.0 fL Mean Corpuscular Hemoglobin 29.9 25.9-34.0 pg Mean Corpuscular HGB Conc 34.7 29.9-35.2 g/dL Red Cell Distribution Width 12.0 11.0-15.0 % Platelet Count 266 150-450 10 3/uL Mean Platelet Volume 9.7 9.5-13.5 fL Neutrophils Percent Auto 59.8 43.0-75.0 % Lymphocytes Percent Auto 28.1 20.5-60.0 % Monocytes Percent Auto 8.5 1.7-12.0 % Eosinophils Percent Auto 2.4 0.9-7.0 % Basophils Percent Auto 1.1 0.2-2.0 % Immature Granulocytes Pct Auto 0.1 0.0-0.5 % Neutrophils Absolute Auto 4.5 1.4-6.5 10 3/uL Lymphocytes Absolute Auto 2.1 1.2-3.8 10 3/uL Monocytes Absolute Auto 0.6 0.3-0.8 10 3/uL Eosinophils Absolute Auto 0.2 0.0-0.7 10 3/uL Basophils Absolute Auto 0.1 0.0-0.1 10 3/uL Immature Granulocytes Abs Auto 0.01 0.00-0.03 10 3/uL Performing Lab: see note ML - [facility] LB Testosterone Reviewed date:02/13/2025 07:00:03 PM Interpretation: Performing Lab: [facility]Report: [facility] , Testosterone 328 264-916 ng/dL Adult male reference interval is based on a population of healthy nonobese males (BMI <30) between 19 and 39 years old. Carley et.al. JCEM 2017,102;9854-2838. PMID: Performed at: [facility] [id number]. [address] [place], [place] [id number] Gaming Commissioner: Armand Rayo PhD, Phone: [phone] Performing Lab: see note - [facility] LIPID PROFILE Reviewed date:11/10/2024 01:45:44 PM Interpretation: Performing Lab: Notes/Report: [facility] , Triglycerides 119 <=150 mg/dL Cholesterol 176 <=200 mg/dL HDL Cholesterol 37 40-60 mg/dL <40 mg/dl - HIGH CARDIOVASCULAR RISK > or =60 mg/dl - LOW CARDIOVASCULAR RISK LDL Cholesterol Calculated 116.0 130-159 mg/dl BORDERLINE HIGH >190 mg/dl VERY HIGH 100-129 mg/dl NEAR OR ABOVE OPTIMAL <100 mg/dl OPTIMAL 160-189 mg/dl HIGH VLDL CHOLESTEROL 23.8 Chol HDL Ratio 4.8 7.1 - 11.0 MODERATE RISK 3.3 - 4.4 LOW RISK >11.0 HIGH RISK 4.4 - 7.1 AVERAGE RISK Performing Lab: see note ML - [facility] LB FREE T3 Reviewed date:11/10/2024 01:45:44 PM Interpretation: Performing Lab: Notes/Report: [facility] , Free T3 2.54 2.18-3.98 pg/mL Performing Lab: see note ML - [facility] LB CBC AUTO DIFF Reviewed date:11/08/2024 10:41:26 AM Interpretation: Performing Lab: Notes/Report: [facility] , White Blood Count 6.6 4.0-11.0 10 3/uL Red Blood Count 4.98 4.70-6.10 10 6/uL Hemoglobin 14.7 14.0-18.0 g/dL Hematocrit 42.7 42.0-54.0 % Mean Corpuscular Volume 85.7 80.0-94.0 fL Mean Corpuscular Hemoglobin 29.5 25.9-34.0 pg Mean Corpuscular HGB Conc 34.4 29.9-35.2 g/dL Red Cell Distribution Width 11.9 11.0-15.0 % Platelet Count 264 150-450 10 3/uL Mean Platelet Volume 9.8 9.5-13.5 fL Neutrophils Percent Auto 54.7 43.0-75.0 % Lymphocytes Percent Auto 32.1 20.5-60.0 % Monocytes Percent Auto 9.5 1.7-12.0 % Eosinophils Percent Auto 2.3 0.9-7.0 % Basophils Percent Auto 1.1 0.2-2.0 % Immature Granulocytes Pct Auto 0.3 0.0-0.5 % Neutrophils Absolute Auto 3.6 1.4-6.5 10 3/uL Lymphocytes Absolute Auto 2.1 1.2-3.8 10 3/uL Monocytes Absolute Auto 0.6 0.3-0.8 10 3/uL Eosinophils Absolute Auto 0.2 0.0-0.7 10 3/uL Basophils Absolute Auto 0.1 0.0-0.1 10 3/uL Immature Granulocytes Abs Auto 0.02 0.00-0.03 10 3/uL Performing Lab: see note ML - [facility] LB TSH Reviewed date:02/12/2025 10:16:26 AM Interpretation: Performing Lab: Notes/Report: [facility] , Thyroid Stimulating Hormone 0.699 0.358-3.740 u IU/mL Performing Lab: see note ML - [facility] LB T4 Reviewed date:02/12/2025 10:16:26 AM Interpretation: Performing Lab: Notes/Report: [facility] , T4 Thyroxine 8.90 4.50-12.10 ug/dL Performing Lab: see note ML - [facility] LB PROF 14(COMP METB) Reviewed date:02/12/2025 10:16:26 AM Interpretation: Performing Lab: Notes/Report: [facility] , Sodium 145 136-145 mmol/L Potassium 4.3 3.5-5.1 mmol/L Chloride 107 98-107 mmol/L Carbon Dioxide 30.5 21.0-32.0 mmol/L Anion Gap 11.8 Glucose 131 74-106 mg/dL Blood Urea Nitrogen 13.0 7.0-18.0 mg/dL Creatinine 1.19 0.70-1.30 mg/dL Estimated GFR ( Catrachita >60 >=60 mL/min/1.73m 2 Estimated GFR (Non- Lakia >60 >=60 mL/min/1.73m 2 BUN Creatinine Ratio 10.9 Calcium 9.2 8.5-10.1 mg/dL Bilirubin Total 0.6 0.2-1.0 mg/dL Aspartate Amino Transferase 31 15-37 U/L Alanine Aminotransferase 55 16-63 U/L Alkaline Phosphatase 60 46-116 U/L Total Protein 6.9 6.4-8.2 g/dL Albumin Level 4.3 3.4-5.0 g/dL Globulin 2.6 Albumin Globulin Ratio 1.7 Performing Lab: see note ML - [facility] LB LIPID PROFILE Reviewed date:02/12/2025 10:16:26 AM Interpretation: Performing Lab: Notes/Report: [facility] , Triglycerides 144 <=150 mg/dL Cholesterol 182 <=200 mg/dL HDL Cholesterol 41 40-60 mg/dL > or =60 mg/dl - LOW CARDIOVASCULAR RISK <40 mg/dl - HIGH CARDIOVASCULAR RISK LDL Cholesterol Calculated 112.2 130-159 mg/dl BORDERLINE HIGH 100-129 mg/dl NEAR OR ABOVE OPTIMAL >190 mg/dl VERY HIGH 160-189 mg/dl HIGH <100 mg/dl OPTIMAL VLDL CHOLESTEROL 28.8 Chol HDL Ratio 4.4 3.3 - 4.4 LOW RISK 7.1 - 11.0 MODERATE RISK 4.4 - 7.1 AVERAGE RISK >11.0 HIGH RISK Performing Lab: see note ML - [facility] LB FREE T3 Reviewed date:02/12/2025 10:16:26 AM Interpretation: Performing Lab: Notes/Report: [facility] , Free T3 3.08 2.18-3.98 pg/mL Performing Lab: see note - [facility] PSA SCREENING Reviewed date:02/12/2025 10:20:08 AM Interpretation: Performing Lab: Notes/Report: [facility] , Prostate Specific Antigen Scrn 1.46 <=4.00 ng/mL Performing Lab: see note - [facility] GLYCOHEMOGLOBIN A1C Reviewed date:02/12/2025 07:17:55 PM Interpretation: Performing Lab: Notes/Report: [facility] , Glycohemoglobin A1C 6.7 4.5-6.2 % ADA THERAPEUTIC TARGET < 7.0 ADA RECOMMENDED LIMIT 4.0 - 6.0 > 7.0 ACTION SUGGESTED Estimated Average Glucose 146 Performing Lab: see note - [facility] Reason For Referral Reason audiology needs hear ing test Diagnosis 1 Hearing loss (H91.90 ) Referral Organization [facility] Referring Provider First Name Abdiaziz Referring Provider Last Name Veronica Referring Provider Speciality [facility] [place] moni Referred Provider Shana Shipley Referred Provider Specialty Otolaryngolo gy Referral Priority Routine Diagnosis 1 Well adult (Z00.00) Referral Organization [facility] Referring Provider First Name Abdiaziz Referring Provider Last Name Veronica Referring Provider Speciality [facility] [place] [facility] Referred Provider Bari Paredes Referred Provider Specialty Dermatology Referral Priority Routine Medications Medication SIG (Take, Route, Frequency, Duration) Notes Start Date End Date Status Fenofibrate 160 MG Take 1 tablet by once daily; Duration: 90 Active Cetirizine HCl 10 MG 1 tablet Orally Onc e a day; Duration: 30 01/17/2024 Active Lisinopril 10 MG 1 tablet Orally Once a day; Duration: 90 days Active Flonase Allergy Relief 50 MCG/ACT 1 spray in each nostril Nasally Once a day; Duration: 30 days Active Glimepiride 2 MG 1 tablet with breakf ast or the first main meal of the day Orally Once a day; Duration: 30 days 11/11/2024 Active Social History Tobacco Use: Social History Observation Description Date Details (start date - stop date) Never Smoker NA - NA Tobacco Use/Smoking Question Answer Notes Patient is a nonsmoker Alcohol Screen (Audit-C) Question Answer Notes Did you have a drink containing alcohol in the p ast year? No Points 0 Interpretation Negative AUDIT-C (Standard) Question Answer Notes Did you have a drink containing alcohol in the p ast year? 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 confirmed Problem Well adolescent (526163795) Well adolescent visit (Z00.3) Active confirmed Vital Signs Blood pressure diastolic 88 mm Hg 02/13/2025 Height 68 in 02/13/2025 Blood pressure systolic 112 mm Hg 02/13/2025 Weight 194.6 lbs 02/13/2025 BMI 29.59 kg/m2 02/13/2025 Encounters Encounter Location Date Provider Diagnosis [facility] [address] [place] [address] 11/06/2024 Abdiaziz Hoy Hypotestosteronemia in male E29.1 [facility] [address] [place] [address] 02/13/2025 Abdiaziz Hoy Hypertension I10 [facility] [address] [place] [address] 11/10/2024 Abdiaziz Hoy Low testosterone E29 .1 and Hypotestosteronemia in male E29.1 [facility] [address] [place] [address] 02/12/2025 Abdiaziz Hoy [facility] [address] [place] [address] 02/13/2025 Abdiaziz Hoy Hypotestosteronemia in male E29.1 [place] [address] [facility] [place] [address] 06/02/2025 Abdiaziz Martin Well adult Z00.00 Assessments Encounter Date Diagnosis (ICD Code) Assessment Notes Treatment Notes Treatment Clinical Notes Section Notes 11/06/2024 Hypotestosteronemia in male (ICD-10 - E29.1) 02/13/2025 Hypertension (ICD-10 - I10) 11/10/2024 Low testosterone (ICD-10 - E29.1) 11/10/2024 Hypotestosteronemia in male (ICD-10 - E29.1) 02/13/2025 Hypotestosteronemia in male (ICD-10 - E29.1) 06/02/2025 Well adult (ICD-10 - Z00.00) Plan Of Treatment Pending Test Test Name Order Date CMP (COMPLETE METABOLIC PANEL) 3 CMP (COMPLETE METABOLIC PANEL) 4 HEMOGLOBIN A1C (GLYCO) 06/05/2024 HEMOGLOBIN A1C (GLYCO) 04/03/2023 LIPID PANEL (CHOL/TRIG/HDL/LDL) 04/03/20 23 LIPID PANEL (CHOL/TRIG/HDL/LDL) 06/05/20 24 CBC WITH DIFF 06/05/2024 CBC WITH DIFF 04/03/2023 PSA, PROSTATE-SPECIFIC ANTIGEN 3 Sleep study - Diagnostic Polysonogram COMPREHENSIVE METABOLIC PROFILE WITH GFR 06/09/2024 TESTOSTERONE 11/10/2024 PSA, TOTAL 06/05/2024 GLYCOHEMOGLOBIN A1C 06/09/2024 TESTOSTERONE, TOTAL 01/17/2024 THYROID PROFILE WITH TSH 01/17/2024 THYROID PANEL (T4/TSH/FREE T3) 4 Insurance Providers Payer Name Payer Address Payer Phone Subscriber Number Group Number Insured Name Patient Relationship to Insured Coverage Start Date Coverage End Date [employer] ACC[employer] PPO PLUS LOCAL PLAN [address] [place] [address] [id number] Pankaj Coleman Self - patient is the insured 3 Medications Administered Medication Instructions Date of Administration Dosage Notes Testosterone Cypionate 01/26/2024 0.5 mL Testosterone Cypionate 02/09/2024 .5 mL Testosterone Cypionate 03/04/2024 0.5 mL Testosterone Cypionate 04/05/2024 .5 mL Testosterone Cypionate 04/30/2024 .5 mL Testosterone Cypionate 05/21/2024 100 mg Testosterone Cypionate 11/06/2024 0.5 mL Medical (General) History Medical History History ICD Code Hypertension I10 Hyperlipidemia E78.5 Surgical History Surgery Date(Month/Year) Vasectomy
--- OUTSIDE RECORDS SUMMARY | 2025-07-29 12:45 | XMS_ITS | Encounter Summary ---
Author Organization [facility] Address [address], [address] [place] [address] Care Team Providers Care Subeditor Name Role Phone Niall Allen DO Primary Care Provider Reason for Visit * Reason Comments Medication Refill Encounter Details Date Type Department Care Team (Late st Contact Info) Description 12/04/2021 Refill [facility] Primary Care [address] [place], [place] [phone] Niall Allen DO [address] [place] [address] Medication Refill Social History Tobacco [...] hypertension documented in this encounter Care Teams Subeditor Relationship Specialty Start Date End Date Niall Allen DO [address] [place] [address] PCP - General Family Medicine 10/05/17 documented as of this encounter
--- OUTSIDE RECORDS SUMMARY | 2025-07-29 12:45 | XMS_ITS | Encounter Summary ---
Author Organization [facility] Address [address], [address] [place] [address] Care Team Providers Care Crusher Screen Repairer Name Role Phone Niall Allen DO Primary Care Provider Reason for Visit * Reason Comments Medication Refill Encounter Details Date Type Department Care Team (Late st Contact Info) Description 06/26/2019 Refill [facility] [address] [place], [place] [phone] Niall Allen DO [address] [facility] [place], [place] [phone] Medication Refill Social History Tobacco Use Types [...] hypertension documented in this encounter Care Teams Crusher Screen Repairer Relationship Specialty Start Date End Date Niall Allen DO [address] [place], [place] [phone] PCP - General Family Medicine 10/05/17 documented as of this encounter
--- OUTSIDE RECORDS SUMMARY | 2025-07-29 12:45 | XMS_ITS | Encounter Summary ---
Author Organization [facility] Address [address], [address] [place] [address] Care Team Providers Care Interpersonal Communications Professor Name Role Phone Niall Allen DO Primary Care Provider Reason for Visit * Reason Comments Medication Refill Encounter Details Date Type Department Care Team (Late st Contact Info) Description 07/09/2019 Refill [facility] [address] [place], [place] [phone] Niall Allen DO [address] [facility] [place] [phone] Medication Refill Social History Tobacco Use Types [...] on filedocumented in this encounter Care Teams Interpersonal Communications Professor Relationship Specialty Start Date End Date Niall Allen DO [address] [place], [place] [phone] PCP - General Family Medicine 10/05/17 documented as of this encounter
--- OUTSIDE RECORDS SUMMARY | 2025-07-29 12:45 | XMS_ITS | Encounter Summary ---
Author Organization [facility] Address [address], [address] [place] [address] Care Team Providers Care Regional Flatbed Truck Driver Name Role Phone Niall Allen DO Primary Care Provider Reason for Visit * Reason Comments Medication Refill Encounter Details Date Type Department Care Team (Late st Contact Info) Description 07/29/2019 Refill [facility] [address] [place], [place] [phone] Niall Allen DO [address] [facility] [place], [place] [phone] Medication Refill Social History Tobacco Use Types [...] hypertension documented in this encounter Care Teams Regional Flatbed Truck Driver Relationship Specialty Start Date End Date Niall Allen DO [address] [place], [place] [phone] PCP - General Family Medicine 10/05/17 documented as of this encounter
--- OUTSIDE RECORDS SUMMARY | 2025-07-29 12:45 | XMS_ITS | Encounter Summary ---
Author Organization [facility] Address [address], [address] [place] [address] Care Team Providers Care Account Group Supervisor Name Role Phone Niall Allen DO Primary Care Provider Reason for Visit * Reason Comments Medication Refill Encounter Details Date Type Department Care Team (Late st Contact Info) Description 02/06/2019 Refill [facility] [address] [place], [place] [phone] Niall Allen DO [address] [facility] [place] [place] [phone] Medication Refill Social History Tobacco Use Types [...] hypertension documented in this encounter Care Teams Account Group Supervisor Relationship Specialty Start Date End Date Niall Allen DO [address] [place], [place] [phone] PCP - General Family Medicine 10/05/17 documented as of this encounter
--- OUTSIDE RECORDS SUMMARY | 2025-07-29 12:45 | XMS_ITS | Encounter Summary ---
Author Organization [facility] Address [address], [address] [place] [address] Care Team Providers Care Clerical Adjuster Name Role Phone Niall Allen DO Primary Care Provider Reason for Visit * Reason Comments Medication Refill Encounter Details Date Type Department Care Team (Late st Contact Info) Description 05/11/2020 Refill [facility] [address] [place], [place] [phone] Niall Allen DO [address] [facility] [place] [phone] Medication Refill Social History Tobacco Use Types [...] hypertension documented in this encounter Care Teams Clerical Adjuster Relationship Specialty Start Date End Date Niall Allen DO [address] [place], [place] [phone] PCP - General Family Medicine 10/05/17 documented as of this encounter
--- OUTSIDE RECORDS SUMMARY | 2025-07-29 12:46 | XMS_ITS | Encounter Summary ---
Author Organization [facility] Address [address], [address] [place] [address] Care Team Providers Care Tool Profiling Machine Set Up Operator Name Role Phone Niall Allen DO Primary Care Provider Reason for Visit * Reason Comments Medication Refill Encounter Details Date Type Department Care Team (Late st Contact Info) Description 10/02/2021 Refill [facility] Primary Care [address] [place], [place] [phone] Niall Allen DO [address] [place] [address] Medication Refill Social History Tobacco [...] hypertension documented in this encounter Care Teams Tool Profiling Machine Set Up Operator Relationship Specialty Start Date End Date Niall Allen DO [address] [place] [address] PCP - General Family Medicine 10/05/17 documented as of this encounter
--- OUTSIDE RECORDS SUMMARY | 2025-07-29 12:46 | XMS_ITS | Encounter Summary ---
Author Organization [facility] Address [address], [address] [place] [address] Care Team Providers Care Outsole Scheduler Name Role Phone Niall Allen DO Primary Care Provider Reason for Visit * Reason Comments Medication Refill Encounter Details Date Type Department Care Team (Late st Contact Info) Description 11/22/2021 Refill [facility] Primary Care [address] [place], [place] [phone] Niall Allen DO [address] [place] [address] Medication Refill Social History Tobacco [...] on filedocumented in this encounter Care Teams Outsole Scheduler Relationship Specialty Start Date End Date Niall Allen DO [address] [place] [address] PCP - General Family Medicine 10/05/17 documented as of this encounter
--- OUTSIDE RECORDS SUMMARY | 2025-07-29 12:46 | XMS_ITS | Clinical Summary ---
Author Organization [facility] Address [address] [place] [address] Phone Care Team Providers Care Fleecer Name Role Phone Unavailable Primary Care Provider Unavailabl e Social History Tobacco Use Types Packs/Day Years Used Date Smoking Tobacco: Never Assessed Sex and Gender Information Value Date Recorded Sex Assigned at Not on file Legal Sex Male 6:31 PM EST Gender Identity Not on file Sexual Orientation Not on file Plan of Treatment Not on file
--- NOTE | 2025-07-29 12:48 | MR_ITS ---
The [place] [id number] Patient Name: KIAN MURRAY MRN: [facility]:[id number] date: 1970 Sex: M Assigned Patient Location: MRI Current Patient Location: MRI Accession/Order Number: [id number] Exam Date: 07/29/2025 13:00 Report Date: 07/29/2025 16:00 At the request of: CONY ANTONY MD Procedure: MR head/brain wo/w con MRI BRAIN WITHOUT AND WITH INTRAVENOUS CONTRAST CLINICAL DATA: Hearing loss, left-sided COMPARISON: None No restricted diffusion. Ventricles and sulci are normal in size and configuration for the patient's age. No shift of midline structure. Basal cisterns are patent. A few scattered punctate foci of T2 FLAIR prolongation within the supratentorial brain within normal limits for patient of this age. Otherwise brain parenchyma unremarkable in signal. Major intracranial arterial vascular flow voids are preserved. Intrinsic T2 signal within the inner ear structures is maintained. Unremarkable cisternal and canalicular segments of the 7th and 8th cranial nerves. Following contrast administration, no abnormal retrocochlear enhancement. No abnormal enhancement identified elsewhere brain. Minimal paranasal sinus mucosal thickening. MR/MR head/brain wo/w con IMPRESSION: Essentially unremarkable MRI of the brain/IACs performed without and with contrast. Impression dictated by: Daniele Cisse M.D. 07/29/2025 4:00 PM Dictation Location: [place] [address] Electronically authenticated by: [id number] Y Date: 07/29/2025 16:00
== END 2025-07-29 12:43 | disposition home or self-care (01) ==
LOC: MRI 12:43
PROVIDERS: PCP Family Medicine; Visit Provider Otolaryngology
DX: H91.92 Unspecified hearing loss, left ear (principal)
CPT/HCPCS: 70553; A9575